=== PATIENT | male | born 1970 | race American Indian/Alaskan Native ===

== ENCOUNTER 2017-08-03 21:48 | Emergency (ER) | payer OTHER ==
[2017-08-03 21:59] VITALS: BP 110/69; PULSE 102; TEMP 99.6; BMI 35.4
--- NOTE | 2017-08-03 22:04 | PDOC ---
History of Present Illness - General Chief Complaint: Chest Pain Stated Complaint: CHEST PAIN Time Seen by Provider: 08/03/17 21:59 History Source: Patient Exam Limitations: No Limitations - History of Present Illness Initial Comments: 08/03/17 22:20 This is a 47-year-old male who comes in complaining of 4 days of progressive pleuritic type pain. Patient said pain is worse when he takes a deep breath and worse when he lays down. Patient said pain is constant but exacerbated by breathing. Patient denies history of similar pain in the past. Patient is otherwise healthy denies any cardiac risk factors and does not smoke drink alcohol or do any recreational drugs. Patient denies any recent travel or recent illnesses. Patient denies any pain or swelling in his legs. PAST MEDICAL HISTORY: no significant history PAST SURGICAL HISTORY: no significant history FAMILY HISTORY: no pertinant history SOCIAL HISTORY: Pt lives with family and is employed. MEDICATIONS: reviewed ALLERGIES: As per nursing notes Review of Systems General: No fevers or chills, no weakness, no weight loss HEENT: No change in vision. No sore throat,. No ear pain CardioVascular: No chest pain or shortness of breath Respiratory:No cough, or wheezing. Gastrointestinal: no nausea, vomitting, diarrhea or constipation, No rectal bleeding Genitourinary: No dysuria, hematuria, or frequency Musculoskeletal: No joint or muscle pain or swelling Neurologic: No headache, vertigo, dizziness or loss of consciousness Psychiatric: nor depression Skin: No rashes or easy bruising Endocrine: no increased thirst or abnormal weight change Allergic: no skin or latex allergy All other systems reviewed and normal Exam: General: Well-nourished well-developed individual, no acute distress HEENT: Throat: Normal, tonsils normal, no erythema or exudate Neck: Supple, no meningeal signs, no lymphadenopathy Eyes::Pupils equal reactive and round, extraocular motion intact Chest: Nontender to palpation Cardiac: S1-S2 normal, regular rate and rhythm, no murmurs rubs or gallops Respiratory: Lungs clear to auscultation bilateral Abdomen: Soft, nondistended, normal bowel sounds, nontender to palpation diffusely Extremities: Warm, dry, no cyanosis, clubbing, or edema Skin: No rashes Neuro: Alert and oriented x3, CN II - XII intact, nonfocal exam with normal strength, normal sensation, normal reflexes, normal gait, Psych: Normal mood and affect Medical decision making: This is a 47-year-old male with no risk factors for coronary disease who comes in with pleuritic chest pain. We'll obtain a basic workup including CBC, comp, cardiac enzymes, EKG and chest x-ray. I will give patient an anti-inflammatory, reassess and follow-up results of his workup. Differential diagnosis includes pleurisy, skeletal muscle pain, cardiac, infectious process, PE. anxiety.[] EKG shows normal sinus rhythm at a rate of 95, normal intervals, no acute ST-T wave changes, normal EKG Chest x-ray shows no acute pathology 08/03/17 23:26 Assessment: Patient feels better post anti-inflammatory. Patient's labs were negative for any acute processes. Patient's troponin was not measurable. Patient's heart score is 1. Patient discharged home told to continue some anti- inflammatories and follow-up with his primary care doctor. Past History - Past Medical History Allergies/Adverse Reactions: Allergies Allergy/AdvReac Type Severity Reaction Status Date / Time No Known Allergies Allergy Verified 07/13/14 09:16 Home Medications: Ambulatory Orders NK [No Known Home Medication] 08/03/17 Anemia: No Asthma: No Cancer: No Cardiac Disorders: No CVA: No COPD: No CHF: No Dementia: No Diabetes: Yes GI Disorders: No Disorders: No HTN: Yes Hypercholesterolemia: No Liver Disease: No Seizures: No Thyroid Disease: No - Surgical History Abdominal Surgery: No Appendectomy: No Cholecystectomy: No GI Surgery: Yes (BARIATRIC) Lung Surgery: No Orthopedic Surgery: No - Immunization History Immunization Up to Date: Yes - Suicide/Smoking/Psychosocial Hx Smoking History: Never smoked Hx Alcohol Use: Yes (OCC) Drug/Substance Use Hx: No Substance Use Type: None Hx Substance Use Treatment: No Cardiac Specific PMH - Complaint Specific PMHX Pacemaker: No *Physical Exam - Vital Signs Last Vital Signs Temp Pulse Resp BP Pulse Ox 99.6 F 102 H 16 110/69 98 08/03/17 21:53 08/03/17 21:53 08/03/17 21:53 08/03/17 21:53 08/03/17 21:53 Heart Score/ECG Review - History History: Slightly suspicious - Electrocardiogram EKG: Normal - Age Age: 45-65 - Risk Factors Based on the list above the patient has:: No risk factors known - Troponin Troponin: </= normal limit - Score Heart Score - Total: 1 ED Treatment Course - LABORATORY CBC & Chemistry Diagram: 08/03/17 22:57 08/03/17 22:57 - ADDITIONAL ORDERS Additional order review: Laboratory Results 08/03/17 08/03/17 08/03/17 22:57 22:57 22:57 Sodium 140 Potassium 3.6 Chloride 109 H Carbon Dioxide 25 Anion Gap 6 L BUN 16 Creatinine 1.0 Creat Clearance w eGFR > 60 Random Glucose 108 H Calcium 9.0 Total Bilirubin 0.7 AST 20 ALT 14 Alkaline Phosphatase 60 Creatine Kinase 184 Troponin I < 0.03 Total Protein 7.1 Albumin 3.7 08/03/17 22:57 RBC 4.30 MCV 90.5 MCHC 33.8 RDW 12.6 MPV 9.4 Neutrophils % 75.9 Lymphocytes % 14.4 Monocytes % 7.9 Eosinophils % 1.5 Basophils % 0.3 - RADIOLOGY Radiology Studies Ordered: Category Date Time Status CHEST X-RAY PORTABLE* [RAD] Stat Radiology 08/03/17 22:20 Taken - Medications Given in the ED: ED Medications Discontinued Medications Generic Name Dose Route Start Last Admin Trade Name Freq PRN Reason Stop Dose Admin Ibuprofen 600 mg 08/03/17 22:25 08/03/17 22:28 Motrin - PO 08/03/17 22:26 600 mg ONCE ONE Administration *DC/Admit/Observation/Transfer Diagnosis at time of Disposition: Pleuritic chest pain - Discharge Dispostion Disposition: HOME Condition at time of disposition: Stable Decision to Admit order: No - Referrals - Patient Instructions Additional Instructions: Take ibuprofen or Aleve for the next 5 days or until the pain resolves. Take it as directed on the bottle do not take it on an empty stomach. Follow-up with your doctor next Saturday if not improved. Return to the emergency department immediately with ANY new, persistent or worsening symptoms. Continue any medications as previously prescribed by your physician. You should follow up with your primary doctor as soon as possible regarding today's emergency department visit. . Please make sure your doctor reviews the results of your emergency evaluation. Thank you for coming to the Emergency Department today for your care. It was a pleasure to see you today. Please note that your evaluation is INCOMPLETE until you follow-up with your doctor. - Post Discharge Activity
[2017-08-03] MEDS ORDERED: IBUPROFEN 600 MG TABLET (FP) PO ONE ×2 (22:25)
[2017-08-03 23:04] LABS: BASO % 0.3 % (0-2.0); EOS % 1.5 % (0-4.5); HEMATOCRIT 38.9 % (35.4-49); HEMOGLOBIN 13.1 GM/dl (11.7-16.9); LYMPH % 14.4 % (8-40); MCH 30.6 pg (25.7-33.7); MCHC 33.8 g/dl (32.0-35.9); MEAN CELL VOLUME 90.5 fl (80-96); MEAN PLT VOLUME 9.4 fl (7.5-11.1); MONO % 7.9 % (3.8-10.2); NEUT % 75.9 % (42.8-82.8); PLATELET COUNT 170 K/MM3 (134-434); RDW 12.6 % (11.9-15.9)
[2017-08-03 23:11] LABS: ALBUMIN 3.7 g/dl (3.5-5.0); ALK PHOS 60 U/L (32-92); ANION GAP 6 (8-16); BILIRUBIN,TOTAL 0.7 mg/dl (0.2-1.0); BLOOD UREA NITROGEN 16 mg/dl (7-18); CHLORIDE 109 mmol/L (98-107); CO2 25 mmol/L (22-28); GLUCOSE,RANDOM 108 mg/dl (74-106); POTASSIUM 3.6 mmol/L (3.5-5.1); SGOT/AST 20 U/L (10-42); SGPT/ALT 14 U/L (10-40); SODIUM 140 mmol/L (136-145); TOT PROT 7.1 g/dl (6.4-8.3)
--- NOTE | 2017-08-08 13:31 | EKG ---
Test Reason : Blood Pressure : / mmHG Vent. Rate : 095 BPM Atrial Rate : 095 BPM P-R Int : 150 ms QRS Dur : 104 ms QT Int : 362 ms P-R-T Axes : 037 -18 022 degrees QTc Int : 454 ms POOR DATA QUALITY, INTERPRETATION MAY BE ADVERSELY AFFECTED NORMAL SINUS RHYTHM NORMAL ECG WHEN COMPARED WITH ECG OF 26-OCT-2009 09:39, INCOMPLETE RIGHT BUNDLE BRANCH BLOCK IS NO LONGER PRESENT Confirmed by JEAN-PAUL ARAGON, JUAN ([id number]) on 08/08/2017 1:31:05 PM Referred By: MD BOATENG Confirmed By:JUAN JEONG MD
== END 2017-08-03 23:33 | disposition home or self-care (01) ==
LOC: FER 21:48
DX: R07.89 Other chest pain (principal); Z98.84 Bariatric surgery status; I10 Essential (primary) hypertension; E11.9 Type 2 diabetes mellitus without complications
CPT/HCPCS: 36415; 71045-TC-FY; 80053; 82550; 82553; 84484; 85025; 93005; 99281-25

== ENCOUNTER 2019-04-27 15:00 | Inpatient (IN) | payer OTHER ==
[2019-04-27] MEDS ORDERED: FAMOTIDINE 20 MG/50 ML IVPB 20 MG in PREMIX 50 IVPB ONE (15:39)
[2019-04-27] MEDS ORDERED: MAG HYDROX/AL HYDROX/SIMETH -MYLANTA- ORAL SUSPENSION PO ONE (15:39)
[2019-04-27] MEDS ORDERED: SODIUM CHLORIDE 1,000 ML IV ONE (15:39)
[2019-04-27] MEDS ORDERED: FAMOTIDINE 20 MG/50 ML IVPB 20 MG/50 ML MG IVPB ONE (15:43)
[2019-04-27] MEDS ORDERED: MAG HYDROX/AL HYDROX/SIMETH 30 ML UNIT-DOSE CUP ONE (15:43)
[2019-04-27 16:05] LABS: EOS % 4.1 % (0-4.5); HEMATOCRIT 44.8 % (35.4-49); HEMOGLOBIN 14.9 GM/dl (11.7-16.9); LYMPH % 16.8 % (8-40); MCH 30.7 pg (25.7-33.7); MCHC 33.4 g/dl (32.0-35.9); MEAN CELL VOLUME 91.9 fl (80-96); MEAN PLT VOLUME 10.4 fl (7.5-11.1); NEUT % 73.1 % (42.8-82.8); PLATELET COUNT 176 K/MM3 (134-434); RBC 4.87 M/mm3 (4.00-5.60); RDW 14.1 % (11.9-15.9); WHITE BLOOD COUNT 5.6 K/mm3 (4.0-10.8)
[2019-04-27 16:15] LABS: ALBUMIN 3.9 g/dl (3.4-5.0); BILIRUBIN,TOTAL 3.5 mg/dl (0.2-1); CALCIUM 9.2 mg/dl (8.5-10); CREATININE 0.9 mg/dl (0.55-1.3); POTASSIUM 3.8 mmol/L (3.5-5.1); TOT PROT 7.6 g/dl (6.4-8.2)
--- NOTE | 2019-04-27 16:21 | PDOC ---
Documentation entered by Bucky Dennis SCRIBE, acting as scribe for Bobby Soria MD. Bobby Soria MD: This documentation has been prepared by the Jeannie emery Xhesika, SCRIBE, under my direction and personally reviewed by me in its entirety. I confirm that the documentation accurately reflects all work, treatment, procedures, and medical decision making performed by me. History of Present Illness - General Chief Complaint: Pain, Acute Stated Complaint: ABD PAIN History Source: Patient Exam Limitations: No Limitations - History of Present Illness Initial Comments: 04/27/19 15:39 The patient is a 49 year old male with a significant PMH of GERD who presents to the emergency department for epigastric pain after a meal x6 days. The patient describes his pain as 6/10 in severity, wrenching, constant, exacerbated with eating adn associated with mild nausea. Pt states he has been endorsing dark orange colored urine since the onset of his symptoms. Pt note he has been taking Aleve, with no improvement of symptoms. The patient denies chest pain, shortness of breath, diaphoresis,headache and dizziness. Denies fever, chills, cough, nausea, vomiting, diarrhea and constipation. Denies dysuria, frequency, urgency and hematuria. Allergies: NKDA surgical hx: sleeve gastrectomy Social hx: social etoh, no smoking (2nd hand smoke from ), no recreation al drug use Past History - Past Medical History Allergies/Adverse Reactions: Allergies Allergy/AdvReac Type Severity Reaction Status Date / Time No Known Allergies Allergy Verified 04/27/19 15:01 Home Medications: Ambulatory Orders NK [No Known Home Medication] 08/03/17 Anemia: No Asthma: No Cancer: No Cardiac Disorders: No CVA: No COPD: No CHF: No Dementia: No Diabetes: Yes GI Disorders: No Disorders: No HTN: Yes Hypercholesterolemia: No Liver Disease: No Seizures: No Thyroid Disease: No - Surgical History Abdominal Surgery: No Appendectomy: No Cholecystectomy: No GI Surgery: Yes (BARIATRIC) Lung Surgery: No Orthopedic Surgery: No - Immunization History Immunization Up to Date: Yes - Psycho Social/Smoking Cessation Hx Smoking History: Never smoked Hx Alcohol Use: Yes (OCC) Drug/Substance Use Hx: No Substance Use Type: None Hx Substance Use Treatment: No Review of Systems - Review of Systems Able to Perform ROS?: Yes Comments:: 04/27/19 15:39 GENERAL/CONSTITUTIONAL: No fever or chills. No weakness. HEAD, EYES, EARS, NOSE AND THROAT: No change in vision. No ear pain or discharge. No sore throat. CARDIOVASCULAR: No chest pain or shortness of breath. RESPIRATORY: No cough, wheezing, or hemoptysis. GASTROINTESTINAL: No nausea, vomiting, diarrhea or constipation. +epigastric/ RUQ pain. GENITOURINARY: No dysuria, frequency. +dark orange colored urine. MUSCULOSKELETAL: No joint or muscle swelling or pain. No neck or back pain. SKIN: No rash NEUROLOGIC: No headache, vertigo, loss of consciousness, or change in strength/ sensation. ENDOCRINE: No increased thirst. No abnormal weight change. HEMATOLOGIC/LYMPHATIC: No anemia, easy bleeding, or history of blood clots. ALLERGIC/IMMUNOLOGIC: No hives or skin allergy. *Physical Exam - Vital Signs Last Vital Signs Temp Pulse Resp BP Pulse Ox 98.4 F 82 16 117/74 100 04/27/19 15:01 04/27/19 15:01 04/27/19 15:01 04/27/19 15:01 04/27/19 15:01 - Physical Exam 04/27/19 16:17 GENERAL: The patient is awake, alert, and fully oriented, Nontoxic - in no acute distress. HEAD: Normocephalic, atraumatic. EYES: extraocular movements intact, sclera anicteric, conjunctiva clear. ENT: Normal voice, Moist mucous membranes. NECK: Normal range of motion, supple LUNGS: Breath sounds equal, clear to auscultation bilaterally. No wheezes, no rhonchi, no rales. HEART: Regular rate and rhythm, normal S1 and S2 without murmur, rub or gallop. ABDOMEN: Soft, mild RUQ tenderness, No guarding, no rebound. No CVA tenderness EXTREMITIES: Normal range of motion, no edema. NEUROLOGICAL: No facial assymetry, Normal speech, PSYCH: Normal mood, normal affect. SKIN: Warm, Dry, normal turgor, Heart Score/ECG Review - ECG Impressions Comment:: 04/27/19 19:25 Twelve-lead EKG was performed and reviewed by me. There is normal sinus rhythm with a normal rate. Rate of 71 incomplete right bundle branch block Nonspecific T wave abnormality qtc of 619 ED Treatment Course - LABORATORY CBC & Chemistry Diagram: 04/27/19 15:50 04/27/19 15:50 Medical Decision Making - Medical Decision Making 04/27/19 15:34 49y M presents with epigastric discomfort for the past 6 days after eating a meal - states the pain is worse with eating, is a wrenching type pain in the middle of his abdomen and constant. no improvement with alleve. pt endorses dark/orange colored urine. bm has been nromal without blood/diarrhea/melena. hx of sleeve gastrectomy ~4 years ago, has been having GERD - Differential for the patient's symptoms including possible gallbladder pathology /gallstones, Pancreatitis, Gastritis Will obtain blood work including lipase, liver enzymes, UA Give the patient Pepcid, Maalox Obtain an EKG to screen for cardiac disease however his symptoms are highly atypical 04/27/19 16:46 labs reviewed noted for elevated LFTs and bilirubin concern for obstructed stone - awaiting GB US 04/27/19 18:05 The patients US noted for gall stones and dilated cbd to 11mm concern for choledocholithiasis will admit for further management and will dw GI pt will likely need MRCP No signs of infection/cholecytsis 04/27/19 18:44 The Case was discussed with BAILEY Crockett - Will admit the patient for further evaluation of possible choledocholithiasis. Patient is currently feeling well without any discomfort Will admit to [facility] under the care of Dr. Her's team Case discussed in detail with admitting physician including history, physical exam and ancillary studies. Admitting physician has assumed care for the patient, will follow all pending diagnostics and will complete the evaluation and treatment. Discharge - Discharge Information Problems reviewed: Yes Clinical Impression/Diagnosis: Choledocholithiasis, Elevated liver enzymes Condition: Improved - Admission Yes - Follow up/Referral Referrals: Socorro Romero MD [Primary Care Provider] - - Patient Discharge Instructions - Post Discharge Activity
--- NOTE | 2019-04-27 18:14 | HP ---
CHIEF COMPLAINT: Abdominal pain PCP: Socorro Romero HISTORY OF PRESENT ILLNESS: 49 year-old male with a PMH significant for kidney stones, GERD, and s/p gastric sleeve x 4 years ([facility]). Presents to ED for evaluation of abdominal pain x 6 days. Patient reports the pain is in his middle upper abdomen. The pain waxes and wanes but never goes completely away. It is accompanied by mild nausea, no vomiting. The pain is worse after he eats. For the past 4 days his urine has become very dark. Patient thought he had a virus which is why he delayed coming to the ED. He denies fever, sweats, chills. Denies dysuria, frequency, urgency. Denies diarrhea, constipation. Denies blood in urine or stool. 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 Smoking: no Alcohol: social Drugs: no Family history: mother alive with DM; father alive with DM; 1 sister a&w; 2 children a&w Allergies No Known Allergies Allergy (Verified 04/27/19 15:01) HOME MEDICATIONS: Home Medications Medication Instructions Recorded NK [No Known Home Medication] 08/03/17 REVIEW OF SYSTEMS CONSTITUTIONAL: Absent: fever, chills, diaphoresis, generalized weakness, malaise, loss of appetite, weight change HEENT: Absent: rhinorrhea, nasal congestion, throat pain, throat swelling, difficulty swallowing, mouth swelling, ear pain, eye pain, visual changes CARDIOVASCULAR: Absent: chest pain, syncope, palpitations, irregular heart rate, lightheadedness , peripheral edema RESPIRATORY: Absent: cough, shortness of breath, dyspnea with exertion, orthopnea, wheezing, stridor, hemoptysis GASTROINTESTINAL: +abdominal pain, nausea Absent: abdominal distension, vomiting, diarrhea, constipation, melena, hematochezia GENITOURINARY: Absent: dysuria, frequency, urgency, hesitancy, hematuria, flank pain, genital pain MUSCULOSKELETAL: Absent: myalgia, arthralgia, joint swelling, back pain, neck pain SKIN: Absent: rash, itching, pallor HEMATOLOGIC/IMMUNOLOGIC: Absent: easy bleeding, easy bruising, lymphadenopathy, frequent infections ENDOCRINE: Absent: unexplained weight gain, unexplained weight loss, heat intolerance, cold intolerance NEUROLOGIC: Absent: headache, focal weakness or paresthesias, dizziness, unsteady gait, seizure, mental status changes, bladder or bowel incontinence PSYCHIATRIC: Absent: anxiety, depression, suicidal or homicidal ideation, hallucinations. PHYSICAL EXAMINATION Vital Signs - 24 hr 04/27/19 15:01 Temperature 98.4 F Pulse Rate 82 Respiratory 16 Rate Blood Pressure 117/74 O2 Sat by Pulse 100 Oximetry (%) GENERAL: Awake, alert, and fully oriented, in no acute distress. HEAD: Normal with no signs of trauma. EYES: Mildly icteric LUNGS: Breath sounds equal, clear to auscultation bilaterally. No wheezes, and no crackles. No accessory muscle use. HEART: Regular rate and rhythm, normal S1 and S2 ABDOMEN: Soft, obese, tender middle upper abdomen on deep palpation MUSCULOSKELETAL: Normal range of motion at all joints. No bony deformities or tenderness. No CVA tenderness. UPPER EXTREMITIES: 2+ pulses, warm, well-perfused. No cyanosis. No clubbing. No peripheral edema. LOWER EXTREMITIES: 2+ pulses, warm, well-perfused. No calf tenderness. No peripheral edema. NEUROLOGICAL: Cranial nerves II-XII intact. Normal speech. Self positions easily Laboratory Results - last 24 hr 04/27/19 04/27/19 04/27/19 15:50 15:50 15:50 WBC 5.6 RBC 4.87 Hgb 14.9 Hct 44.8 D MCV 91.9 MCH 30.7 MCHC 33.4 RDW 14.1 D Plt Count 176 MPV 10.4 D Absolute Neuts (auto) 4.1 Neutrophils % 73.1 Lymphocytes % 16.8 Monocytes % 5.0 Eosinophils % 4.1 D Basophils % 1.0 D Sodium 136 Potassium 3.8 Chloride 101 Carbon Dioxide 26 Anion Gap 9 BUN 10.0 Creatinine 0.9 Est GFR (CKD-EPI)AfAm 115.02 Est GFR (CKD-EPI)NonAf 99.24 Random Glucose 143 H Calcium 9.2 Total Bilirubin 3.5 H AST 321 H ALT 512 H Alkaline Phosphatase 219 H Total Protein 7.6 Albumin 3.9 Lipase 106 Urine Color Urine Appearance Urine pH Urine Protein Urine Glucose (UA) Urine Ketones Urine Blood Urine Nitrite Urine Bilirubin Urine Urobilinogen Ur Leukocyte Esterase Urine RBC Urine WBC Urine Bacteria 04/27/19 16:10 WBC RBC Hgb Hct MCV MCH MCHC RDW Plt Count MPV Absolute Neuts (auto) Neutrophils % Lymphocytes % Monocytes % Eosinophils % Basophils % Sodium Potassium Chloride Carbon Dioxide Anion Gap BUN Creatinine Est GFR (CKD-EPI)AfAm Est GFR (CKD-EPI)NonAf Random Glucose Calcium Total Bilirubin AST ALT Alkaline Phosphatase Total Protein Albumin Lipase Urine Color Dark Urine Appearance Cloudy Urine pH 5.5 Urine Protein Negative Urine Glucose (UA) Negative Urine Ketones Trace Urine Blood Trace-intact Urine Nitrite Negative Urine Bilirubin 3+ H Urine Urobilinogen 2.0 Ur Leukocyte Esterase Negative Urine RBC 2-5 Urine WBC 0-2 Urine Bacteria Few ASSESSMENT/PLAN: 49 year-old male with a PMH significant for kidney stones, GERD, and s/p gastric sleeve x 4 years ([facility]). Presents to ED for evaluation of abdominal pain x 6 days. Abdominal pain Cholelithiasis Dilated common bile duct Elevated liver function --afebrile, no leukocytosis --CTAP shows multiple small gallstones, +business analytics manager's Root's sign, and dilated CBD 11mm --total bili 3.5, elevated transaminases, jaundiced sclera --discussed with radiology Dr. Torres, needs MRCP --no GI coverage tonight at [place]; transfer patient to [facility] for further GI evaluation --start empiric ceftriaxone and metronidazole s/p Gastric sleeve surgery --last saw surgeon ~ 6 months ago, no reported complications Renal colic --four previous episodes, lithotripsy 2006 GERD --protonix FEN Fluids: NS@125mL/hr Electrolytes: replete as indicated Nutrition: NPO DVT prophylaxis: SCDs, oob, ambulation Dispo: continues to require inpatient care. Full code. Visit type - Emergency Visit Emergency Visit: Yes Care time: The patient presented to the Emergency Department on the above date and was hospitalized for further evaluation of their emergent condition. - New Patient This patient is new to me today: Yes Date on this admission: 04/27/19 - Critical Care Critical Care patient: No
[2019-04-27] MEDS ORDERED: ACETAMINOPHEN 1000 MG/100 ML VIAL (NON FORMULARY) IVPB SCH (18:45)
[2019-04-27] MEDS: SODIUM CHLORIDE 1,000 ML IV SCH ×2 (19:21→22:46)
[2019-04-27] MEDS ORDERED: CEFTRIAXONE 2 GM in DEXTROSE 5%-WATER 100 ML IVPB SCH (22:30)
[2019-04-27] MEDS ORDERED: IBUPROFEN 800 MG/8 ML IJ IVPB ONE (22:35)
[2019-04-27] MEDS ORDERED: DEXTROSE 5%-WATER 100 ML IVPB ONE (22:42)
[2019-04-27 22:52] LABS: BASO % 0.8 % (0-2.0); HEMATOCRIT 40.4 % (35.4-49); HEMOGLOBIN 13.6 GM/dL (11.7-16.9); LYMPH % 24.2 % (8-40); MCH 30.6 pg (25.7-33.7); MCHC 33.5 g/dl (32.0-35.9); MEAN CELL VOLUME 91.4 fl (80-96); MEAN PLT VOLUME 9.4 fl (7.5-11.1); PLATELET COUNT 139 K/MM3 (134-434); RBC 4.42 M/mm3 (4.00-5.60); RDW 14.6 % (11.9-15.9); WHITE BLOOD COUNT 4.9 K/mm3 (4.0-10.0)
[2019-04-27 23:20] LABS: BLOOD UREA NITROGEN 8.6 mg/dL (7-18); CALCIUM 8.5 mg/dL (8.5-10.1); CREATININE 0.9 mg/dL (0.55-1.3); POTASSIUM 3.6 mmol/L (3.5-5.1)
[2019-04-27 23:27] LABS: ALBUMIN 3.3 g/dl (3.4-5.0); BILIRUBIN,DIRECT 2.3 mg/dL (0.0-0.2); BILIRUBIN,TOTAL 2.7 mg/dL (0.2-1); MAGNESIUM 1.8 mg/dL (1.8-2.4); TOT PROT 6.8 g/dl (6.4-8.2)
[2019-04-27 23:47] VITALS: BMI 36.8
--- NOTE | 2019-04-28 09:22 | EKG ---
Test Reason : Blood Pressure : / mmHG Vent. Rate : 071 BPM Atrial Rate : 071 BPM P-R Int : 160 ms QRS Dur : 118 ms QT Int : 570 ms P-R-T Axes : 034 -28 -04 degrees QTc Int : 619 ms NORMAL SINUS RHYTHM INCOMPLETE RIGHT BUNDLE BRANCH BLOCK ABNORMAL ECG Confirmed by Michele Ye MD ([id number]) on 04/28/2019 9:22:21 AM Referred By: Confirmed By:Michele Ye MD
[2019-04-28] MEDS ORDERED: DEXTROSE 5%-WATER 100 ML IVPB ONE (09:38)
[2019-04-28 09:43] LABS: ALBUMIN 3.3 g/dl (3.4-5.0); BILIRUBIN,DIRECT 0.5 mg/dL (0.0-0.2); BILIRUBIN,TOTAL 0.8 mg/dL (0.2-1); TOT PROT 6.8 g/dl (6.4-8.2)
[2019-04-28] MEDS: SODIUM CHLORIDE 1,000 ML IV SCH (09:46)
[2019-04-28] MEDS: CEFTRIAXONE 2 GM in DEXTROSE 5%-WATER 100 ML IVPB SCH (09:46)
[2019-04-28 09:49] LABS: EOS % 4.6 % (0-4.5); HEMATOCRIT 40.3 % (35.4-49); HEMOGLOBIN 13.4 GM/dL (11.7-16.9); LYMPH % 20.5 % (8-40); MCH 30.6 pg (25.7-33.7); MCHC 33.3 g/dl (32.0-35.9); MEAN PLT VOLUME 9.6 fl (7.5-11.1); MONO % 6.9 % (3.8-10.2); PLATELET COUNT 135 K/MM3 (134-434); RBC 4.38 M/mm3 (4.00-5.60); RDW 15.1 % (11.9-15.9); WHITE BLOOD COUNT 4.2 K/mm3 (4.0-10.0)
[2019-04-28] MEDS ORDERED: PANTOPRAZOLE SODIUM 40 MG VIAL IVPUSH SCH (10:00)
[2019-04-28 10:34] LABS: ACTIVATED PTT 29.8 SECONDS (25.2-36.5); INR 1.05 (0.83-1.09); PROTHROMBIN TIME (PATIENT) 12.4 SEC (9.7-13.0)
[2019-04-28] MEDS ORDERED: ACETAMINOPHEN 1000 MG/100 ML VIAL (NON FORMULARY) IVPB ONE (11:38)
--- NOTE | 2019-04-28 11:39 | PN ---
Physical Exam: SUBJECTIVE: Patient seen and examined Patient seen and examined at the bedside. c/o of headache. no nausea or vomiting. denies any abdominal pain. OBJECTIVE: Patient is a 49 year-old male with a past medical history significant for kidney stones, GERD, and s/p gastric sleeve x 4 years ago. Presents to ED on for evaluation of abdominal pain x 6 days. Patient reports the pain is in his middle upper abdomen. The pain waxes and wanes but never goes completely away. It is accompanied by mild nausea, no vomiting. The pain is worse after he eats. For the past 4 days his urine has become very dark. He denies fever, sweats, chills. Denies dysuria, frequency, urgency. Vital Signs Period Temp Pulse Resp BP Sys/Ferrari Pulse Ox Last 24 Hr 97.4 F-98.7 F 62-82 16-20 100-129/57-81 99-100 GENERAL: The patient is awake, alert, and fully oriented, in no acute distress. HEAD: Normal with no signs of trauma. EYES: PERRL, extraocular movements intact, sclera anicteric, conjunctiva clear. No ptosis. ENT: Ears normal, nares patent, oropharynx clear without exudates, moist mucous membranes. NECK: Trachea midline, full range of motion, supple. LUNGS: Breath sounds equal, clear to auscultation bilaterally, no wheezes, no crackles, no accessory muscle use. HEART: Regular rate and rhythm, ABDOMEN: Soft, nontender, nondistended, normoactive bowel sounds EXTREMITIES: no edema. NEUROLOGICAL: Normal speech, gait not observed. PSYCH: Normal mood, normal affect. SKIN: Warm, dry, normal turgor, no rashes or lesions noted Laboratory Results - last 24 hr 04/27/19 04/27/19 04/27/19 15:50 15:50 15:50 WBC 5.6 RBC 4.87 Hgb 14.9 Hct 44.8 D MCV 91.9 MCH 30.7 MCHC 33.4 RDW 14.1 D Plt Count 176 MPV 10.4 D Absolute Neuts (auto) 4.1 Neutrophils % 73.1 Lymphocytes % 16.8 Monocytes % 5.0 Eosinophils % 4.1 D Basophils % 1.0 D Nucleated RBC % PT with INR INR PTT (Actin FS) Sodium 136 Potassium 3.8 Chloride 101 Carbon Dioxide 26 Anion Gap 9 BUN 10.0 Creatinine 0.9 Est GFR (CKD-EPI)AfAm 115.02 Est GFR (CKD-EPI)NonAf 99.24 Random Glucose 143 H Calcium 9.2 Magnesium Total Bilirubin 3.5 H Direct Bilirubin 2.0 H AST 321 H ALT 512 H Alkaline Phosphatase 219 H Total Protein 7.6 Albumin 3.9 Lipase 106 Urine Color Urine Appearance Urine pH Urine Protein Urine Glucose (UA) Urine Ketones Urine Blood Urine Nitrite Urine Bilirubin Urine Urobilinogen Ur Leukocyte Esterase Urine RBC Urine WBC Urine Bacteria Blood Type Antibody Screen 04/27/19 04/27/19 04/27/19 16:10 22:30 22:30 WBC 4.9 RBC 4.42 Hgb 13.6 Hct 40.4 MCV 91.4 MCH 30.6 MCHC 33.5 RDW 14.6 Plt Count 139 MPV 9.4 Absolute Neuts (auto) 3.1 Neutrophils % 63.0 Lymphocytes % 24.2 Monocytes % 7.0 Eosinophils % 5.0 H Basophils % 0.8 Nucleated RBC % 0 PT with INR INR PTT (Actin FS) Sodium 140 Potassium 3.6 Chloride 109 H Carbon Dioxide 25 Anion Gap 6 L BUN 8.6 Creatinine 0.9 Est GFR (CKD-EPI)AfAm 115.02 Est GFR (CKD-EPI)NonAf 99.24 Random Glucose 128 H Calcium 8.5 Magnesium 2.0 Total Bilirubin Direct Bilirubin AST ALT Alkaline Phosphatase Total Protein Albumin Lipase Urine Color Dark Urine Appearance Cloudy Urine pH 5.5 Urine Protein Negative Urine Glucose (UA) Negative Urine Ketones Trace Urine Blood Trace-intact Urine Nitrite Negative Urine Bilirubin 3+ H Urine Urobilinogen 2.0 Ur Leukocyte Esterase Negative Urine RBC 2-5 Urine WBC 0-2 Urine Bacteria Few Blood Type Antibody Screen 04/27/19 04/28/19 04/28/19 22:30 06:00 07:48 WBC 4.2 RBC 4.38 Hgb 13.4 Hct 40.3 MCV 92.0 MCH 30.6 MCHC 33.3 RDW 15.1 Plt Count 135 MPV 9.6 Absolute Neuts (auto) 2.8 Neutrophils % 67.0 Lymphocytes % 20.5 Monocytes % 6.9 Eosinophils % 4.6 H Basophils % 1.0 Nucleated RBC % 0 PT with INR INR PTT (Actin FS) Sodium Potassium Chloride Carbon Dioxide Anion Gap BUN Creatinine Est GFR (CKD-EPI)AfAm Est GFR (CKD-EPI)NonAf Random Glucose Calcium Magnesium 1.8 Total Bilirubin 2.7 H 0.8 Direct Bilirubin 2.3 H 0.5 H AST 306 H 213 H ALT 517 H 441 H Alkaline Phosphatase 249 H 249 H Total Protein 6.8 6.8 Albumin 3.3 L 3.3 L Lipase Urine Color Urine Appearance Urine pH Urine Protein Urine Glucose (UA) Urine Ketones Urine Blood Urine Nitrite Urine Bilirubin Urine Urobilinogen Ur Leukocyte Esterase Urine RBC Urine WBC Urine Bacteria Blood Type Antibody Screen 04/28/19 04/28/19 07:48 07:48 WBC RBC Hgb Hct MCV MCH MCHC RDW Plt Count MPV Absolute Neuts (auto) Neutrophils % Lymphocytes % Monocytes % Eosinophils % Basophils % Nucleated RBC % PT with INR 12.40 INR 1.05 PTT (Actin FS) 29.8 Sodium Potassium Chloride Carbon Dioxide Anion Gap BUN Creatinine Est GFR (CKD-EPI)AfAm Est GFR (CKD-EPI)NonAf Random Glucose Calcium Magnesium Total Bilirubin Direct Bilirubin AST ALT Alkaline Phosphatase Total Protein Albumin Lipase Urine Color Urine Appearance Urine pH Urine Protein Urine Glucose (UA) Urine Ketones Urine Blood Urine Nitrite Urine Bilirubin Urine Urobilinogen Ur Leukocyte Esterase Urine RBC Urine WBC Urine Bacteria Blood Type A POSITIVE Antibody Screen Negative Active Medications Generic Name Dose Route Start Last Admin Trade Name Ariana PRN Reason Stop Dose Admin Acetaminophen 1,000 mg 04/28/19 11:38 Ofirmev Injection - IVPB 04/28/19 11:39 ONCE ONE Sodium Chloride 1,000 mls @ 125 mls/hr 04/27/19 18:45 04/28/19 09:46 Normal Saline - IV 125 mls/hr ASDIR MURRAY Administration Ceftriaxone Sodium 2 gm/ 100 mls @ 200 mls/hr 04/28/19 10:00 04/28/19 09:46 Dextrose IVPB 200 mls/hr DAILY MURRAY Administration Protocol Metronidazole 500 mg in 100 mls @ 100 mls/hr 04/28/19 10:00 04/28/19 09:45 Flagyl 500mg Premixed Ivpb - IVPB 100 mls/hr Q8H-IV MURRAY Administration Pantoprazole Sodium 40 mg 04/28/19 10:00 04/28/19 09:45 Protonix Iv IVPUSH 40 mg DAILY MURRAY Administration ASSESSMENT/PLAN: Problem List - Problems (1) Abdominal pain Assessment/Plan: patient presents with abdominal pain, mild nausea and no vomiting CTAP shows multple small gallstones with positive murphys sign with dilated CBD Total bili initially 3.5, now trending down Has elevated liver enzymes patient for a MRCP on Ceftriaxone/Flagyl NPO for abdominal pain, advance diet when cleared by GI Code(s): R10.9 - UNSPECIFIED ABDOMINAL PAIN (2) Choledocholithiasis Code(s): K80.50 - CALCULUS OF BILE DUCT W/O CHOLANGITIS OR CHOLECYST W/O OBST (3) Elevated liver enzymes Assessment/Plan: Elevated liver function hepatitis panel ordered Code(s): R74.8 - ABNORMAL LEVELS OF OTHER SERUM ENZYMES (4) Multiple gallstones Assessment/Plan: GI and surgery following Code(s): K80.20 - CALCULUS OF GALLBLADDER W/O CHOLECYSTITIS W/O OBSTRUCTION (5) Left flank pain Code(s): R10.9 - UNSPECIFIED ABDOMINAL PAIN (6) Prophylactic measure Assessment/Plan: fen tolerating po monitor electrolytes advance diet per GI full code Code(s): Z29.9 - ENCOUNTER FOR PROPHYLACTIC MEASURES, UNSPECIFIED Visit type - Emergency Visit Emergency Visit: Yes ED Registration Date: 04/27/19 Care time: The patient presented to the Emergency Department on the above date and was hospitalized for further evaluation of their emergent condition. - New Patient This patient is new to me today: Yes Date on this admission: 04/28/19 - Critical Care Critical Care patient: No - Discharge Referral Referred to [facility] Med P.C.: No
[2019-04-28 11:41] LABS: BLOOD UREA NITROGEN 7.8 mg/dL (7-18); CALCIUM 8.5 mg/dL (8.5-10.1); CREATININE 0.9 mg/dL (0.55-1.3)
--- NOTE | 2019-04-28 11:46 | PN ---
Progress Note (short form) - Note Progress Note: GI CONSULT DICTATED MRCP NPO IVF ABX SURGERY EVAL
--- NOTE | 2019-04-28 12:24 | CONS ---
GASTROINTESTINAL CONSULTATION DATE OF CONSULTATION: DATE OF DICTATION: 04/28/2019 HISTORY: Patient is a 49-year-old man with a past medical history significant for renal calculi, reflux disease, gastric sleeve 4 years ago who presents to the hospital with a 6-day history of mid and right upper quadrant abdominal pain with associated nausea. He became concerned on Saturday when he noticed his urine turning darker in color prompting him to go to [facility]. While there, he was noted to have abnormal liver tests and questionable cholecystitis. Therefore, he was transferred to [facility] for further management. He currently denies abdominal pain. States he is feeling better on the current medications. He denies any new medications, antibiotics, travel, or history of liver disease. He does not drink any alcohol. PAST MEDICAL HISTORY: As listed in the HPI. PAST SURGICAL HISTORY: As listed in the HPI with the addition of a lithotripsy. SOCIAL HISTORY: Lives with his . Works as a delivery supervisor. Does not smoke, drink, or use drugs. FAMILY HISTORY: There is no history of GI or gynecological malignancy and no history of liver disease. PHYSICAL EXAMINATION: General: In no acute distress. Vital Signs: Temperature 97, pulse 62, blood pressure 106/57, respiratory rate 18. HEENT: Anicteric sclerae. Cardiovascular: S1, S2. Regular rate and rhythm. Lungs: Bilaterally clear to auscultation. Abdomen: Tender in the right upper quadrant epigastrium without rebound or guarding. Bowel sounds are normal. Extremities: No edema. LABORATORIES: White blood cell count 4.2, hemoglobin 13, hematocrit 40, MCV 92, platelet count 135. INR 1. Sodium 139, potassium 4, BUN 7.8, creatinine 0.9, glucose 82. Total bilirubin on transfer was 3.5, direct 2, currently it is 0.8. Liver tests on the ; AST 321, ALT 510, alkaline phosphatase 219. These numbers today are AST 213, ALT 441, alkaline phosphatase 249. Lipase 106. He had a gallbladder ultrasound, which revealed hepatomegaly, multiple small gallstones without sonographic evidence of acute cholecystitis; however, there was a positive Root sign that was reported. Dilated CBD measuring 11 mm. MRCP was recommended. Nonobstructing renal stone. IMPRESSION: Right upper quadrant abdominal pain, epigastric abdominal pain with associated nausea and abnormal liver tests, which the alanine aminotransferase is much greater than aspartate aminotransferase and a dilated common bile duct on ultrasound. These findings are most consistent with a potential choledocholithiasis or a passed stone also with questionable sonographic Root sign on ultrasound. RECOMMENDATION: Surgery evaluation. Antibiotics should be continued. Currently on ceftriaxone and metronidazole. PPI for symptomatic relief. MRCP has been ordered. Will contact Dr. Tobar for potential ERCP. N.p.o. IV fluids. DO RASHIDA CROWE/[id number]
[2019-04-28 15:10] LABS: PH,URINE 5.5 (5.0-8.0); URINE APPEARANCE CLEAR; URINE BILIRUBIN NEGATIVE (NEGATIVE); URINE COLOR YELLOW; URINE GLUCOSE (UA) NEGATIVE (NEGATIVE); URINE KETONE NEGATIVE (NEGATIVE); URINE LEUK ESTERASE NEGATIVE (NEGATIVE); URINE NITRITE NEGATIVE (NEGATIVE); URINE PROTEIN NEGATIVE (NEGATIVE); URINE UROBILINOGEN 0.2 mg/dL (0.2-1.0)
--- NOTE | 2019-04-28 15:19 | PN ---
Progress Note (short form) - Note Progress Note: GI NOte: Asked by Dr Sunshine to evaluate Chito for a possible ERCP. I have discussed ERCP in detail including informing him of the potential for such complications as as perforation, hemorrhage and multiorgan failure that can develop with ERCP induced pancreatitis. He has signed an informed consent. MRCP is pending. Await results and repeat LFTs to determine whether or not to proceed with ERCP. Will allow clear liquids tonight but keep NPO after midnight.
--- NOTE | 2019-04-28 15:31 | CONSULT ---
- Consultation REQUESTING PROVIDER: General Surgery - Rick Lopez CONSULT REQUEST: We have been asked to surgically evaluate this patient for RUQ abd pain. Hospitalist FILTER [employer]ER: Bonilla Davis HPI: Called to sabra 49 yo male with PMHx as noted below. Presents to [facility] ED w/ c/o abd pain (points to epigastric region) for the past 6 days. Pain waxes & wanes but never completely goes away. First noticed it soon after eating a meal (typically high in fats). Associated with some nausea but denies vomiting. Also happen to notice a change in his urine color (tea appearance per patient). Denies any sick contacts. Denies any abd trauma. Denies any fever/chills, diaphoresis. Denies CP, palpitations, SOB or REYNOLDS. Denies dysuria, hematuria or flank pain. Denies melena or hematochezia. ABD Ultrasound: hepatomegaly w/ fatty infiltration. Multiple gallstones without sonographic evidence of acute bj. + Sonographic Root's. CBD 11mm PMHx: kidney stones, GERD, Duodenitis/Gastritis PSHx: Laprascopic Gastric Sleeve Gastrectomy([facility]) EGD 2015 ([facility]) Lithotripsy x 1 2006 Home Meds: None. Allergies: NKDA ROS: CONSTITUTIONAL: Absent: generalized weakness, malaise, loss of appetite, weight change CARDIOVASCULAR: Absent: syncope, irregular heart rate, lightheadedness, peripheral edema RESPIRATORY: Absent: cough, wheezing, stridor, hemoptysis GASTROINTESTINAL:see hpi GENITOURINARY: Absent: see hpi MUSCULOSKELETAL: Absent: myalgia, arthralgia, joint swelling, back pain, neck pain SKIN: Absent: rash, itching, pallor HEMATOLOGIC/IMMUNOLOGIC: Absent: easy bleeding, easy bruising, lymphadenopathy NEUROLOGIC: Absent: paresthesias, dizziness, unsteady gait, seizure, mental status changes PSYCHIATRIC: Absent: anxiety, depression, suicidal or homicidal ideation, hallucinations. PE: GENERAL: A&Ox3. NAD HEAD: Normal with no signs of trauma. EYES: PERRL, sclera anicteric, conjunctiva clear. NECK: Normal ROM, supple without lymphadenopathy, JVD, or masses. LUNGS: CTA bilat HEART: RRR ABD: Soft, RUQ ttp, + Root's MUSCULOSKELETAL: No CVAT bilat UE: 2+ pulses, warm, well-perfused. No cyanosis. Cap refill <2 seconds. No peripheral edema. LE: 2+ pulses, warm, well-perfused. No calf tenderness. No peripheral edema. NEUROLOGICAL: Normal speech, gait not observed. PSYCH: Cooperative. Good eye contact. Appropriate mood and affect. SKIN: Warm, dry, normal turgor, no rashes or lesions noted. Last Vital Signs Temp Pulse Resp BP Pulse Ox 98.3 F 63 18 108/64 99 04/28/19 14:13 04/28/19 14:13 04/28/19 14:13 04/28/19 14:13 04/27/19 22:10 Blood Type Blood Type A POSITIVE 04/28/19 07:48 CBC, BMP 04/28/19 07:48 04/28/19 06:00 Hepatic Panel Total Bilirubin 0.8 mg/dL (0.2-1) 04/28/19 06:00 Direct Bilirubin 0.5 mg/dL (0.0-0.2) H 04/28/19 06:00 AST 213 U/L (15-37) H 04/28/19 06:00 ALT 441 U/L (13-61) H 04/28/19 06:00 Alkaline Phosphatase 249 U/L (45-117) H 04/28/19 06:00 Albumin 3.3 g/dl (3.4-5.0) L 04/28/19 06:00 INR, PTT INR 1.05 (0.83-1.09) 04/28/19 07:48 Urine Test Results Urine Color Yellow 04/28/19 12:00 Urine Appearance Clear 04/28/19 12:00 Urine pH 5.5 (5.0-8.0) 04/28/19 12:00 Ur Specific [place] 1.016 (1.010-1.035) 04/28/19 12:00 Urine Protein Negative (NEGATIVE) 04/28/19 12:00 Urine Glucose (UA) Negative (NEGATIVE) 04/28/19 12:00 Urine Ketones Negative (NEGATIVE) 04/28/19 12:00 Urine Blood Negative (NEGATIVE) 04/28/19 12:00 Urine Nitrite Negative (NEGATIVE) 04/28/19 12:00 Urine Bilirubin Negative (NEGATIVE) 04/28/19 12:00 Ur Leukocyte Esterase Negative (NEGATIVE) 04/28/19 12:00 Urine RBC 2-5 /hpf (0-4) 04/27/19 16:10 Urine WBC 0-2 (NEGATIVE) 04/27/19 16:10 Urine Bacteria Few /hpf (NEGATIVE) 04/27/19 16:10 Problem List - Problems (1) Multiple gallstones Assessment/Plan: 49 year old male admitted w/ RUQ abd pain and elevated LFTs. GI following f/u MRCP, possible ERCP pending results NPO IVF GI PPx DVT PPx Trend LFTs Amylase/Lipase Surgery to cont following Above plan discussed with Dr. Lopez and agrees. Code(s): K80.20 - CALCULUS OF GALLBLADDER W/O CHOLECYSTITIS W/O OBSTRUCTION (2) Elevated liver enzymes Code(s): R74.8 - ABNORMAL LEVELS OF OTHER SERUM ENZYMES Visit type - Case Type Case Type: Scheduled - New patient This patient is new to me today: Yes Date on this admission: 04/28/19
[2019-04-29] MEDS: SODIUM CHLORIDE 1,000 ML IV SCH ×2 (02:08→21:48)
[2019-04-29 09:17] LABS: BASO % 0.7 % (0-2.0); EOS % 2.8 % (0-4.5); HEMATOCRIT 42.4 % (35.4-49); HEMOGLOBIN 14.4 GM/dL (11.7-16.9); LYMPH % 18.1 % (8-40); MEAN PLT VOLUME 9.4 fl (7.5-11.1); MONO % 6.3 % (3.8-10.2); NEUT % 72.1 % (42.8-82.8); PLATELET COUNT 147 K/MM3 (134-434); RBC 4.66 M/mm3 (4.00-5.60); RDW 14.5 % (11.9-15.9)
[2019-04-29] MEDS ORDERED: DEXTROSE 5%-WATER 100 ML IVPB ONE ×2 (09:24→10:09)
[2019-04-29] MEDS ORDERED: LORazepam 2 MG/ML SDV VIAL IVPUSH ONE (09:30)
[2019-04-29 09:31] LABS: INR 1.04 (0.83-1.09); PROTHROMBIN TIME (PATIENT) 12.3 SEC (9.7-13.0)
[2019-04-29 09:59] LABS: ALBUMIN 3.6 g/dl (3.4-5.0); BILIRUBIN,DIRECT 0.4 mg/dL (0.0-0.2); BILIRUBIN,TOTAL 0.7 mg/dL (0.2-1); BLOOD UREA NITROGEN 8.7 mg/dL (7-18); CALCIUM 9.1 mg/dL (8.5-10.1); TOT PROT 7.5 g/dl (6.4-8.2)
[2019-04-29] MEDS: PANTOPRAZOLE SODIUM 40 MG VIAL IVPUSH SCH (10:31)
--- NOTE | 2019-04-29 10:46 | PN ---
Progress Note (short form) - Note Progress Note: GI NOte> MRCP still pending but LFTs continue to normalize. Toy defer ERCP until MRCP is completed.
[2019-04-29] MEDS: CEFTRIAXONE 2 GM in DEXTROSE 5%-WATER 100 ML IVPB SCH (11:21)
--- NOTE | 2019-04-29 11:41 | PN ---
Physical Exam: SUBJECTIVE: Patient seen and examined at the bedside. OBJECTIVE: Patient is a 49 year-old male with a past medical history significant for kidney stones, GERD, and s/p gastric sleeve x 4 years ago. Presents to ED on for evaluation of abdominal pain x 6 days. Patient reports the pain is in his middle upper abdomen. The pain waxes and wanes but never goes completely away. It is accompanied by mild nausea, no vomiting. The pain is worse after he eats. For the past 4 days his urine has become very dark. He denies fever, sweats, chills. Denies dysuria, frequency, urgency. Vital Signs Period Temp Pulse Resp BP Sys/Ferrari Pulse Ox Last 24 Hr 97.5 F-98.7 F 63-70 18-20 107-120/64-84 97-99 GENERAL: The patient is awake, alert, and fully oriented, in no acute distress. HEAD: Normal with no signs of trauma. EYES: PERRL, extraocular movements intact, sclera anicteric, conjunctiva clear. No ptosis. ENT: Ears normal, nares patent, oropharynx clear without exudates, moist mucous membranes. NECK: Trachea midline, full range of motion, supple. LUNGS: Breath sounds equal, clear to auscultation bilaterally, no wheezes, no crackles, no accessory muscle use. HEART: Regular rate and rhythm, ABDOMEN: Soft, nontender, nondistended, normoactive bowel sounds EXTREMITIES: no edema. NEUROLOGICAL: Normal speech, gait not observed. PSYCH: Normal mood, normal affect. SKIN: Warm, dry, normal turgor, no rashes or lesions noted Laboratory Results - last 24 hr 04/28/19 04/28/19 04/29/19 06:00 12:00 08:34 WBC RBC Hgb Hct MCV MCH MCHC RDW Plt Count MPV Absolute Neuts (auto) Neutrophils % Lymphocytes % Monocytes % Eosinophils % Basophils % Nucleated RBC % PT with INR INR Sodium 139 136 Potassium 4.0 4.0 Chloride 106 102 Carbon Dioxide 26 27 Anion Gap 7 L 7 L BUN 7.8 8.7 Creatinine 0.9 1.0 Est GFR (CKD-EPI)AfAm 115.02 101.26 Est GFR (CKD-EPI)NonAf 99.24 87.37 Random Glucose 82 80 Calcium 8.5 9.1 Magnesium 2.0 Iron 100 TIBC 339 Iron Saturation 29 Unsaturated IBC 239 Ferritin 446.8 H Total Bilirubin 0.8 0.7 Direct Bilirubin 0.5 H 0.4 H AST 213 H 129 H ALT 441 H 367 H Alkaline Phosphatase 249 H 240 H Creatine Kinase 204 Creatine Kinase Index 0.5 CK-MB (CK-2) 1.1 C-Reactive Protein 0.6 H Total Protein 6.8 7.5 Albumin 3.3 L 3.6 Total Amylase 34 Lipase 105 Urine Color Yellow Urine Appearance Clear Urine pH 5.5 Ur Specific [place] 1.016 Urine Protein Negative Urine Glucose (UA) Negative Urine Ketones Negative Urine Blood Negative Urine Nitrite Negative Urine Bilirubin Negative Urine Urobilinogen 0.2 Ur Leukocyte Esterase Negative 04/29/19 04/29/19 04/29/19 08:34 08:34 08:34 WBC 5.0 RBC 4.66 Hgb 14.4 Hct 42.4 MCV 91.0 MCH 31.0 MCHC 34.0 RDW 14.5 Plt Count 147 MPV 9.4 Absolute Neuts (auto) 3.6 Neutrophils % 72.1 Lymphocytes % 18.1 Monocytes % 6.3 Eosinophils % 2.8 Basophils % 0.7 Nucleated RBC % 0 PT with INR 12.30 INR 1.04 Sodium Potassium Chloride Carbon Dioxide Anion Gap BUN Creatinine Est GFR (CKD-EPI)AfAm Est GFR (CKD-EPI)NonAf Random Glucose Calcium Magnesium Iron Cancelled TIBC Cancelled Iron Saturation Cancelled Unsaturated IBC Cancelled Ferritin Cancelled Total Bilirubin Direct Bilirubin AST ALT Alkaline Phosphatase Creatine Kinase Creatine Kinase Index CK-MB (CK-2) C-Reactive Protein Total Protein Albumin Total Amylase Lipase Urine Color Urine Appearance Urine pH Ur Specific [place] Urine Protein Urine Glucose (UA) Urine Ketones Urine Blood Urine Nitrite Urine Bilirubin Urine Urobilinogen Ur Leukocyte Esterase Active Medications Generic Name Dose Route Start Last Admin Trade Name Freq PRN Reason Stop Dose Admin Ceftriaxone Sodium 2 gm/ 100 mls @ 200 mls/hr 04/28/19 10:00 04/29/19 11:21 Dextrose IVPB 200 mls/hr DAILY MURRAY Administration Protocol Metronidazole 500 mg in 100 mls @ 100 mls/hr 04/28/19 10:00 04/29/19 09:39 Flagyl 500mg Premixed Ivpb - IVPB 100 mls/hr Q8H-IV MURRAY Administration Sodium Chloride 1,000 mls @ 125 mls/hr 04/28/19 18:39 04/29/19 02:08 Normal Saline - IV 125 mls/hr ASDIR MURRAY Administration Pantoprazole Sodium 40 mg 04/29/19 10:00 04/29/19 10:31 Protonix Iv IVPUSH 40 mg DAILY MURRAY Administration ASSESSMENT/PLAN: Problem List - Problems (1) Abdominal pain Assessment/Plan: patient presents with abdominal pain, mild nausea and no vomiting CTAP shows multple small gallstones with positive murphys sign with dilated CBD MRCP shows cholelithiasis with multiple gallstones, no evidence of pericholecystic fluid collection or masses. Total bili initially 3.5, now trending down Has elevated liver enzymes, also trending down. hepatitis panel sent and pending. on Ceftriaxone/Flagyl NPO per Dr. Lopez Code(s): R10.9 - UNSPECIFIED ABDOMINAL PAIN (2) Choledocholithiasis Code(s): K80.50 - CALCULUS OF BILE DUCT W/O CHOLANGITIS OR CHOLECYST W/O OBST (3) Elevated liver enzymes Assessment/Plan: Elevated liver function hepatitis panel ordered Code(s): R74.8 - ABNORMAL LEVELS OF OTHER SERUM ENZYMES (4) Multiple gallstones Assessment/Plan: GI and surgery following Code(s): K80.20 - CALCULUS OF GALLBLADDER W/O CHOLECYSTITIS W/O OBSTRUCTION (5) Left flank pain Code(s): R10.9 - UNSPECIFIED ABDOMINAL PAIN (6) Prophylactic measure Assessment/Plan: fen tolerating po monitor electrolytes advance diet per GI full code Code(s): Z29.9 - ENCOUNTER FOR PROPHYLACTIC MEASURES, UNSPECIFIED Visit type - Emergency Visit Emergency Visit: Yes ED Registration Date: 04/27/19 Care time: The patient presented to the Emergency Department on the above date and was hospitalized for further evaluation of their emergent condition. - New Patient This patient is new to me today: No - Critical Care Critical Care patient: No - Discharge Referral Referred to [facility] Med [facility].C.: No
--- NOTE | 2019-04-29 19:01 | PN ---
Progress Note (short form) - Note Progress Note: Pt seen/examined, feeling better, no further abdominal pain. MRCP revealing gallstones, no CBD stones or ductal dilation. LFTs improving. On examination: Pt sitting in chair, appears well Abd soft, nt, nd Labs reviewed. CBC, BMP 04/29/19 08:34 04/29/19 08:34 49yo male with abdominal pain with elevated LFTs and gallstones. No cbd stones or ductal dilation on MRI. -No indication for ERCP at this time -Monitor LFT trend to ensure normalization -Further recommendations per surgery regarding timing of lap bj
[2019-04-30] MEDS ORDERED: DEXTROSE 5%-WATER 100 ML IVPB ONE (11:01)
[2019-04-30] MEDS: PANTOPRAZOLE SODIUM 40 MG VIAL IVPUSH SCH (11:04)
[2019-04-30] MEDS: CEFTRIAXONE 2 GM in DEXTROSE 5%-WATER 100 ML IVPB SCH (11:04)
[2019-04-30 12:37] LABS: BASO % 0.8 % (0-2.0); EOS % 2.4 % (0-4.5); HEMATOCRIT 42.8 % (35.4-49); HEMOGLOBIN 14.2 GM/dL (11.7-16.9); LYMPH % 20.4 % (8-40); MCH 30.4 pg (25.7-33.7); MCHC 33.3 g/dl (32.0-35.9); MEAN CELL VOLUME 91.3 fl (80-96); MEAN PLT VOLUME 9.4 fl (7.5-11.1); NEUT % 70.4 % (42.8-82.8); PLATELET COUNT 152 K/MM3 (134-434); RBC 4.69 M/mm3 (4.00-5.60); RDW 14.9 % (11.9-15.9); WHITE BLOOD COUNT 5.3 K/mm3 (4.0-10.0)
[2019-04-30 13:17] LABS: ALBUMIN 3.6 g/dl (3.4-5.0); BILIRUBIN,TOTAL 0.4 mg/dL (0.2-1); BLOOD UREA NITROGEN 6.9 mg/dL (7-18); CALCIUM 9.1 mg/dL (8.5-10.1); MAGNESIUM 1.9 mg/dL (1.8-2.4); POTASSIUM 4.1 mmol/L (3.5-5.1); TOT PROT 7.7 g/dl (6.4-8.2)
[2019-04-30 13:29] LABS: INR 1.07 (0.83-1.09); PROTHROMBIN TIME (PATIENT) 12.6 SEC (9.7-13.0)
--- NOTE | 2019-04-30 13:34 | PN ---
Physical Exam: SUBJECTIVE: Patient seen and examined at the bedside. feels well, in no acute distress. family at bedside. OBJECTIVE: Patient is a 49 year-old male with a past medical history significant for kidney stones, GERD, and s/p gastric sleeve x 4 years ago. Presents to ED on for evaluation of abdominal pain x 6 days. Patient reports the pain is in his middle upper abdomen. The pain waxes and wanes but never goes completely away. It is accompanied by mild nausea, no vomiting. Patient for a planned lap bj today with Dr. Lopez. Vital Signs Period Temp Pulse Resp BP Sys/Ferrari Pulse Ox Last 24 Hr 97.6 F-98.1 F 68-76 20-20 114-118/59-86 96-96 GENERAL: The patient is awake, alert, and fully oriented, in no acute distress. HEAD: Normal with no signs of trauma. EYES: PERRL, extraocular movements intact, sclera anicteric, conjunctiva clear. No ptosis. ENT: Ears normal, nares patent, oropharynx clear without exudates, moist mucous membranes. NECK: Trachea midline, full range of motion, supple. LUNGS: Breath sounds equal, clear to auscultation bilaterally, no wheezes, no crackles, no accessory muscle use. HEART: Regular rate and rhythm, ABDOMEN: Soft, nontender, nondistended, normoactive bowel sounds EXTREMITIES: no edema. NEUROLOGICAL: Normal speech, gait not observed. PSYCH: Normal mood, normal affect. SKIN: Warm, dry, normal turgor, no rashes or lesions noted Laboratory Results - last 24 hr 04/29/19 04/30/19 04/30/19 08:34 11:50 11:50 WBC 5.3 RBC 4.69 Hgb 14.2 Hct 42.8 MCV 91.3 MCH 30.4 MCHC 33.3 RDW 14.9 Plt Count 152 MPV 9.4 Absolute Neuts (auto) 3.7 Neutrophils % 70.4 Lymphocytes % 20.4 Monocytes % 6.0 Eosinophils % 2.4 Basophils % 0.8 Nucleated RBC % 0 PT with INR 12.60 INR 1.07 Sodium Potassium Chloride Carbon Dioxide Anion Gap BUN Creatinine Est GFR (CKD-EPI)AfAm Est GFR (CKD-EPI)NonAf Random Glucose Calcium Magnesium Total Bilirubin AST ALT Alkaline Phosphatase Total Protein Albumin Hep C Ab Diagnostic <0.1 04/30/19 11:50 WBC RBC Hgb Hct MCV MCH MCHC RDW Plt Count MPV Absolute Neuts (auto) Neutrophils % Lymphocytes % Monocytes % Eosinophils % Basophils % Nucleated RBC % PT with INR INR Sodium 139 Potassium 4.1 Chloride 104 Carbon Dioxide 29 Anion Gap 6 L BUN 6.9 L Creatinine 1.0 Est GFR (CKD-EPI)AfAm 101.26 Est GFR (CKD-EPI)NonAf 87.37 Random Glucose 94 Calcium 9.1 Magnesium 1.9 Total Bilirubin 0.4 AST 122 H ALT 308 H Alkaline Phosphatase 212 H Total Protein 7.7 Albumin 3.6 Hep C Ab Diagnostic Active Medications Generic Name Dose Route Start Last Admin Trade Name Freq PRN Reason Stop Dose Admin Ceftriaxone Sodium 2 gm/ 100 mls @ 200 mls/hr 04/28/19 10:00 04/30/19 11:04 Dextrose IVPB 200 mls/hr DAILY MURRAY Administration Protocol Metronidazole 500 mg in 100 mls @ 100 mls/hr 04/28/19 10:00 04/30/19 10:16 Flagyl 500mg Premixed Ivpb - IVPB 100 mls/hr Q8H-IV MRURAY Administration Sodium Chloride 1,000 mls @ 125 mls/hr 04/28/19 18:39 04/29/19 21:48 Normal Saline - IV 125 mls/hr ASDIR MURRAY Administration Pantoprazole Sodium 40 mg 04/29/19 10:00 04/30/19 11:04 Protonix Iv IVPUSH 40 mg DAILY MURRAY Administration ASSESSMENT/PLAN: Problem List - Problems (1) Abdominal pain Assessment/Plan: patient presents with abdominal pain, mild nausea and no vomiting CTAP shows multple small gallstones with positive murphys sign with dilated CBD MRCP shows cholelithiasis with multiple gallstones, no evidence of pericholecystic fluid collection or masses. for a lap bj today with Dr. Lopez. Code(s): R10.9 - UNSPECIFIED ABDOMINAL PAIN (2) Choledocholithiasis Code(s): K80.50 - CALCULUS OF BILE DUCT W/O CHOLANGITIS OR CHOLECYST W/O OBST (3) Elevated liver enzymes Assessment/Plan: liver enzymes trending down. hepatitis panel ordered Code(s): R74.8 - ABNORMAL LEVELS OF OTHER SERUM ENZYMES (4) Multiple gallstones Assessment/Plan: GI and surgery following Code(s): K80.20 - CALCULUS OF GALLBLADDER W/O CHOLECYSTITIS W/O OBSTRUCTION (5) Left flank pain Code(s): R10.9 - UNSPECIFIED ABDOMINAL PAIN (6) Prophylactic measure Assessment/Plan: fen tolerating po monitor electrolytes advance diet per surgery full code Code(s): Z29.9 - ENCOUNTER FOR PROPHYLACTIC MEASURES, UNSPECIFIED Visit type - Emergency Visit Emergency Visit: Yes ED Registration Date: 04/27/19 Care time: The patient presented to the Emergency Department on the above date and was hospitalized for further evaluation of their emergent condition. - New Patient This patient is new to me today: No - Critical Care Critical Care patient: No - Discharge Referral Referred to [facility] Med P.C.: No
--- NOTE | 2019-04-30 17:17 | PN ---
Progress Note (short form) - Note Progress Note: Attending Surgeon For lap bj possible open today; risk; benefit ;an technique d/w the patient yesterday and today; reviewed MRCP findings w/him and reasons to proceed w/ surgery; he understands this and informed consent was obtained. Rick Lopez MD FACS
[2019-04-30] MEDS ORDERED: MIDAZOLAM HCL 2 MG/2 ML SINGLE DOSE VIAL ONE (17:53)
[2019-04-30] MEDS ORDERED: PROPOFOL 20 ML ONE ×2 (17:53)
[2019-04-30] MEDS ORDERED: fentaNYL CITRATE 250 MCG/5 ML VIAL ONE (17:53)
[2019-04-30] MEDS ORDERED: LIDOCAINE HCL/PF 2% SDV 5ML VIAL ONE (17:54)
[2019-04-30] MEDS ORDERED: GLYCOPYRROLATE 0.2 MG/1 ML VIAL ONE (17:54)
[2019-04-30] MEDS ORDERED: LIDOCAINE HCL 2% JELLY (5 ML/TUBE) ONE (17:54)
[2019-04-30] MEDS ORDERED: DEXAMETHASONE SOD PHOSPHATE 4 MG/1 ML VIAL ONE (17:54)
[2019-04-30] MEDS ORDERED: ceFAZolin SODIUM 1 GM VIAL ONE (17:54)
[2019-04-30] MEDS ORDERED: cefOXitin SODIUM 2 GM VIAL (RESTRICTED TO ID) IVPB ONE (18:16)
[2019-04-30] MEDS ORDERED: ROCURONIUM BROMIDE 50 MG/5 ML SYRINGE ONE (18:53)
[2019-04-30] MEDS ORDERED: NEOSTIGMINE METHYLSULFATE 0.5 MG/ML - 10 ML MDV ONE (19:12)
[2019-04-30] MEDS ORDERED: BUPIVACAINE HCL/PF 0.5% (5 MG/ML) 30 ML VIAL IJ ONE ×3 (19:31)
[2019-04-30] MEDS ORDERED: oxyCODONE HCL 5 MG TABLET PO PRN (20:08)
[2019-04-30] MEDS: ACETAMINOPHEN 1000 MG/100 ML VIAL (NON FORMULARY) IVPB PRN (20:10)
--- NOTE | 2019-04-30 20:12 | SURG ---
Surgery Corporate Tax Preparer Note Corporate Tax Preparer: Sena Alvarado PA-C Date of Service: 04/30/19 Diagnosis: acute cholecystitis/cholelithiasis Procedure: laparoscopic cholecystectomy I was present for the entirety of the operative procedure. For further detail, please refer to operative report. Visit type - Case Type Case Type: ED Admission - Emergency Emergency Visit: Yes ED Registration Date: 04/27/19 Care time: The patient presented to the Emergency Department on the above date and was hospitalized for further evaluation of their emergent condition. - New patient This patient is new to me today: Yes Date on this admission: 04/30/19
[2019-04-30] MEDS ORDERED: LACTATED RINGERS SOLUTION 1,000 ML IV SCH (20:15)
[2019-04-30] MEDS ORDERED: ONDANSETRON 4 MG/2 ML VIAL IVPUSH PRN (20:15)
[2019-04-30] MEDS: SODIUM CHLORIDE 1,000 ML IV SCH (21:45)
[2019-04-30] MEDS: oxyCODONE HCL 5 MG TABLET PO PRN (23:41)
[2019-05-01] MEDS: ACETAMINOPHEN 1000 MG/100 ML VIAL (NON FORMULARY) IVPB PRN ×2 (02:12→09:25)
--- NOTE | 2019-05-01 08:20 | PN ---
Progress Note (short form) - Note Progress Note: Surgery POD#1 lap bj patient seen and examined at bedside with no complaints. He ate chips overnight despite being NPO. He states he has minimal pain and denies any CP, SOB, N/V, fever or chills. Vital Signs Temp 98.5 F 05/01/19 14:17 Pulse 93 H 05/01/19 14:17 Resp 20 05/01/19 14:17 BP 120/56 L 05/01/19 14:17 Pulse Ox 94 L 04/30/19 22:00 Intake & Output 04/30/19 05/01/19 05/01/19 23:59 11:59 23:59 Intake Total 2750 1520 Output Total 2135 110 Balance 615 1410 Intake: IV 2550 1000 Normal Saline - 1,000 ml 800 1000 @ 125 mls/hr IV ASDIR MURRAY Rx#:[id number] Normal Saline - 1,000 ml 300 @ 125 mls/hr IV ASDIR MURRAY Rx#:[id number] IVPB 200 100 Oral Supplement 420 Output: Drainage 290 110 Right Abdomen 40 110 Urine 1825 Void 425 Estimated Blood Loss 20 Other: Voiding Method Urinal # Unmeasured Voids Void 2 Bowel Movement No No CBC, BMP 05/01/19 10:30 05/01/19 10:30 PE: A&Ox3, NAD Unlabored resp on RA ABD: obese, soft, ND with mild TTP throughout appropriate to status, dressings c /d/i with surrounding tissue intact and no evidence of tracking erythema or active d/c B/L LE compartments soft, supple and non-tender with +2 DP pulses. Problem List - Problems (1) S/P laparoscopic cholecystectomy Assessment/Plan: POD #1 lap bj patient doing well already tolerating diet. -Advance diet as tolerated-regular diet -OOB as tolerated- encourage ambulation -Daily IS -Trend drain output - trend labs -d/c planning for home once drain removed and medically stable. Evaluation and plan discussed with Dr Lopez. Code(s): Z90.49 - ACQUIRED ABSENCE OF OTHER SPECIFIED PARTS OF DIGESTIVE TRACT
[2019-05-01] MEDS: SODIUM CHLORIDE 1,000 ML IV SCH (08:48)
--- NOTE | 2019-05-01 08:58 | OP ---
Operative Note - Note: Operative Date: 04/30/19 Pre-Operative Diagnosis: acute cholecystitis/cholelithiasis/resolved choledocholithiasis Operation: laparoscopic cholecystectomy Findings: tntc tiny cholelithiasis Post-Operative Diagnosis: Same as Pre-op Surgeon: Rick Lopez Information Technology Assistant: Sena Alvarado Anesthesiologist/ACCORDION REPAIRER: Claire Crowder Anesthesia: General Specimens Removed: gallbladder and contents Estimated Blood Loss (mls): 50 Drains & Tubes with Location: 10 mm BRIANNA
[2019-05-01] MEDS: PANTOPRAZOLE SODIUM 40 MG VIAL IVPUSH SCH (09:18)
--- NOTE | 2019-05-01 10:15 | OP ---
DATE OF OPERATION: 04/30/2019 PREOPERATIVE DIAGNOSIS: Acute cholecystitis, cholelithiasis and resolved choledocholithiasis. POSTOPERATIVE DIAGNOSIS: Acute cholecystitis, cholelithiasis and resolved choledocholithiasis. PROCEDURE: Laparoscopic cholecystectomy. SURGEON: Rick Lopez MD PIPE CHIPPER: Sena Alvarado PA-C ANESTHESIA: General. OPERATIVE FINDINGS: There were too numerous to count tiny stones within the gallbladder. There was mild inflammation. The rest of the findings were unremarkable. PROCEDURE: The patient was placed on the operating table in the supine position and after the induction of general anesthesia the patient's abdomen was prepped with ChloraPrep and draped in sterile fashion. A timeout was taken and pneumoperitoneum established above the umbilicus using a Veress needle. Once 15 mmHg of pressure were obtained, a 5-mm port was placed at the umbilicus and additional lateral 5-mm ports and a subxiphoid 12-mm port. Laparoscopy was carried out and the previously noted findings were observed. Dissection was begun at the neck of the gallbladder where the peritoneum was opened medially and laterally using blunt dissection and electrocautery. The cystic duct was identified coursing from the neck of the gallbladder towards the common bile duct and it was dissected using blunt dissection proximally and distally for length. Similarly, the artery was identified and dissected proximally and distally for length. A critical view of safety was taken and then the duct and the artery were clipped twice proximally and twice distally with large hemoclips. The duct and artery were then serially divided using Endoshears. Hemostasis was checked for and noted to be good and then the gallbladder was removed from the liver bed in a retrograde fashion using electrocautery. Prior to removal from the edge of the liver, hemostasis in the liver bed was again checked for and noted to be good and then the gallbladder removed from the edge of the liver, placed in an EndoCatch , and brought out through the subxiphoid port. Pneumoperitoneum was reestablished. Copious irrigation was carried out with saline. Hemostasis was verified again. A 10-mm Juan Pablo-Ferguson drain was placed in the right hepatorenal fossa and brought out through 1 of the 5-mm ports and secured to the skin with 2-0 silk suture. All port sites were removed under laparoscopic vision without evidence of bleeding from the port sites. The port sites were infiltrated with 0.5% Marcaine and the skin edges reapproximated with 4-0 Biosyn in a subcuticular continuous fashion. Steri-Strips and Band-Aid dressings were placed. The drain was connected to bulb suction and then the patient aroused from general anesthesia and transferred to the postanesthesia care unit in stable condition, awake and alert. ESTIMATED BLOOD LOSS: 50 mL. REPLACEMENT: Crystalloid. DRAINS: One 10-mm Juan Pablo-Ferguson in the gallbladder fossa. SPECIMEN: Gallbladder and contents to Pathology. I, Rick Lopez, was physically present in the operating room from the time the patient was placed on the operating table until he was transferred to the postanesthesia care unit in [employer]. MD RAGHAV Chong/[id number] MTDD
[2019-05-01 11:27] LABS: BASO % 0.4 % (0-2.0); EOS % 0.1 % (0-4.5); HEMATOCRIT 39.7 % (35.4-49); HEMOGLOBIN 13.5 GM/dL (11.7-16.9); LYMPH % 9.9 % (8-40); MCH 30.8 pg (25.7-33.7); MEAN CELL VOLUME 90.3 fl (80-96); MEAN PLT VOLUME 9.5 fl (7.5-11.1); MONO % 4.8 % (3.8-10.2); NEUT % 84.8 % (42.8-82.8); PLATELET COUNT 142 K/MM3 (134-434); RDW 14.5 % (11.9-15.9); WHITE BLOOD COUNT 8.9 K/mm3 (4.0-10.0)
[2019-05-01] MEDS ORDERED: ACETAMINOPHEN 325 MG TABLET (FP) PO PRN (11:51)
[2019-05-01 11:57] LABS: ALBUMIN 3.2 g/dl (3.4-5.0); BILIRUBIN,TOTAL 0.6 mg/dL (0.2-1); CALCIUM 8.6 mg/dL (8.5-10.1); CREATININE 0.9 mg/dL (0.55-1.3); MAGNESIUM 1.7 mg/dL (1.8-2.4); POTASSIUM 3.8 mmol/L (3.5-5.1); TOT PROT 6.7 g/dl (6.4-8.2)
--- NOTE | 2019-05-01 14:11 | PN ---
Progress Note (short form) - Note Progress Note: Anesthesia Post op Pt seen and examined S:alert and awake O: CBC, BMP 05/01/19 10:30 05/01/19 10:30 Vital Signs Temperature 98.3 F 05/01/19 07:42 Pulse Rate 96 H 05/01/19 07:42 Respiratory Rate 20 05/01/19 07:42 Blood Pressure 120/70 05/01/19 07:42 O2 Sat by Pulse Oximetry (%) 94 L 04/30/19 22:00 A/P: Current Active Problems Abdominal pain (Acute) Choledocholithiasis (Acute) Elevated liver enzymes (Acute) Multiple gallstones (Acute) Prophylactic measure (Acute) s/p lap bj Doing well post op Continue current care Sandip Knowles
--- NOTE | 2019-05-01 14:20 | PN ---
Physical Exam: SUBJECTIVE: Patient seen and examined at the bedside. in no acute distress, denies pain, no nausea or vomiting, tolerating diet. OBJECTIVE: Patient is a 49 year-old male with a past medical history significant for kidney stones, GERD, and s/p gastric sleeve x 4 years ago. Presents to ED on for evaluation of abdominal pain x 6 days. Patient reports the pain is in his middle upper abdomen. The pain waxes and wanes but never goes completely away. It is accompanied by mild nausea, no vomiting. Patient is s/p lap bj with Dr. Lopez. Vital Signs Period Temp Pulse Resp BP Sys/Ferrari Pulse Ox Last 24 Hr 97.9 F-99.0 F 72-96 16-26 113-141/56-84 93-100 GENERAL: The patient is awake, alert, and fully oriented, in no acute distress. HEAD: Normal with no signs of trauma. EYES: PERRL, extraocular movements intact, sclera anicteric, conjunctiva clear. No ptosis. ENT: Ears normal, nares patent, oropharynx clear without exudates, moist mucous membranes. NECK: Trachea midline, full range of motion, supple. LUNGS: Breath sounds equal, clear to auscultation bilaterally, no wheezes, no crackles, no accessory muscle use. HEART: Regular rate and rhythm, ABDOMEN: Soft, nontender, c/d/i surgical site, david drain with small amt of sero sang drainage. EXTREMITIES: no edema. NEUROLOGICAL: Normal speech, gait not observed. PSYCH: Normal mood, normal affect. SKIN: Warm, dry, normal turgor, no rashes or lesions noted Laboratory Results - last 24 hr 04/29/19 05/01/19 05/01/19 08:34 10:30 10:30 WBC 8.9 RBC 4.40 Hgb 13.5 Hct 39.7 MCV 90.3 MCH 30.8 MCHC 34.0 RDW 14.5 Plt Count 142 MPV 9.5 Absolute Neuts (auto) 7.6 Neutrophils % 84.8 H D Lymphocytes % 9.9 D Monocytes % 4.8 Eosinophils % 0.1 D Basophils % 0.4 Nucleated RBC % 0 Sodium 135 L Potassium 3.8 Chloride 103 Carbon Dioxide 24 Anion Gap 8 BUN 8.0 Creatinine 0.9 Est GFR (CKD-EPI)AfAm 115.02 Est GFR (CKD-EPI)NonAf 99.24 Random Glucose 94 Calcium 8.6 Magnesium 1.7 L Total Bilirubin 0.6 AST 105 H ALT 236 H Alkaline Phosphatase 171 H Total Protein 6.7 Albumin 3.2 L Smooth Musc &[employer]PER[employer] Intrp 10 Active Medications Generic Name Dose Route Start Last Admin Trade Name Freq PRN Reason Stop Dose Admin Acetaminophen 650 mg 05/01/19 11:51 Tylenol - PO Q6H PRN PAIN LEVEL 1-3 Sodium Chloride 1,000 mls @ 125 mls/hr 04/30/19 20:09 05/01/19 08:48 Normal Saline - IV 125 mls/hr ASDIR MURRAY Administration Oxycodone HCl 5 mg 04/30/19 20:08 Roxicodone - PO Q4H PRN PAIN LEVEL 4-6 Oxycodone HCl 10 mg 04/30/19 20:08 04/30/19 23:41 Roxicodone - PO 10 mg Q4H PRN Administration PAIN LEVEL 7-10 Pantoprazole Sodium 40 mg 05/01/19 10:00 05/01/19 09:18 Protonix Iv IVPUSH 40 mg DAILY MURRAY Administration ASSESSMENT/PLAN: Problem List - Problems (1) S/P laparoscopic cholecystectomy Assessment/Plan: s/p lap bj with Dr. Lopez on 04/30/2019, now with david drain on a regular diet monitor pain levels, vitals and encourage early ambulation/incentive spriometer Code(s): Z90.49 - ACQUIRED ABSENCE OF OTHER SPECIFIED PARTS OF DIGESTIVE TRACT (2) Abdominal pain Assessment/Plan: resolved, s/p lap jb Code(s): R10.9 - UNSPECIFIED ABDOMINAL PAIN (3) Choledocholithiasis Assessment/Plan: s/p lap bj Code(s): K80.50 - CALCULUS OF BILE DUCT W/O CHOLANGITIS OR CHOLECYST W/O OBST (4) Elevated liver enzymes Assessment/Plan: liver enzymes trending down. hepatitis panel ordered Code(s): R74.8 - ABNORMAL LEVELS OF OTHER SERUM ENZYMES (5) Multiple gallstones Code(s): K80.20 - CALCULUS OF GALLBLADDER W/O CHOLECYSTITIS W/O OBSTRUCTION (6) Left flank pain Assessment/Plan: resolved Code(s): R10.9 - UNSPECIFIED ABDOMINAL PAIN (7) Prophylactic measure Code(s): Z29.9 - ENCOUNTER FOR PROPHYLACTIC MEASURES, UNSPECIFIED Visit type - Emergency Visit Emergency Visit: Yes ED Registration Date: 04/27/19 Care time: The patient presented to the Emergency Department on the above date and was hospitalized for further evaluation of their emergent condition. - New Patient This patient is new to me today: No - Critical Care Critical Care patient: No - Discharge Referral Referred to [facility] Med P.C.: No
[2019-05-01] MEDS: oxyCODONE HCL 5 MG TABLET PO PRN ×2 (15:28→21:08)
--- NOTE | 2019-05-01 18:16 | PN.GI ---
GI Progress Note Subjective: POD 1 s/p Lap Marisa Overall states feeling well HCV Ab neg - Objective Vital Signs: Vital Signs Temperature 98.5 F 05/01/19 14:17 Pulse Rate 93 H 05/01/19 14:17 Respiratory Rate 20 05/01/19 14:17 Blood Pressure 120/56 L 05/01/19 14:17 O2 Sat by Pulse Oximetry (%) 94 L 04/30/19 22:00 Constitutional: Calm Eyes: No: Sclera Icterus Cardiovascular: Yes: Regular Rate and Rhythm. No: Murmur Respiratory: Yes: CTA Bilaterally Gastrointestinal Inspection: Yes: Scars (trochar scars, + BRIANNA drain in RUQ w/ serosanguinous drainage). No: Distention ...Auscultate: Yes: Normoactive Bowel Sounds ...Palpate: Yes: Tenderness (TTP at trochar sites) Edema: No (No LE edema) Neurological: Yes: Alert Labs: CBC, BMP 05/01/19 10:30 05/01/19 10:30 INR, PTT INR 1.07 (0.83-1.09) 04/30/19 11:50 Problem List - Problems (1) Elevated liver enzymes Assessment/Plan: Suspected passsed CBD stone. Now S/P Lap Marisa Continue to monitor LFTs Post op care per Surgery Code(s): R74.8 - ABNORMAL LEVELS OF OTHER SERUM ENZYMES
[2019-05-01 20:07] LABS: HEP B CORE AB, TOT Negative (Negative)
[2019-05-02] MEDS: SODIUM CHLORIDE 1,000 ML IV SCH (04:12)
[2019-05-02 06:05] LABS: ALPHA 2 MACROGLOBULINS,QN 126 mg/dL (110-276); ALT(SGPT)P5P 382 IU/L (0-55); CHOLESTEROL TOTAL 227 mg/dL (100-199); FIBROSIS SCORE 0.47 (0.00-0.21); GLUCOSE SERUM 82 mg/dL (65-99); HEIGHT 69 in (.); WEIGHT- 249 LBS (.)
[2019-05-02] MEDS: PANTOPRAZOLE SODIUM 40 MG VIAL IVPUSH SCH (09:10)
--- NOTE | 2019-05-02 09:46 | PN ---
Physical Exam: SUBJECTIVE: Patient seen and examined OBJECTIVE: Vital Signs Period Temp Pulse Resp BP Sys/Ferrari Pulse Ox Last 24 Hr 97.8 F-98.5 F 84-101 18-20 108-120/56-80 85 GENERAL: The patient is awake, alert, and fully oriented, in no acute distress. HEAD: Normal with no signs of trauma. EYES: PERRL, extraocular movements intact, sclera anicteric, conjunctiva clear. No ptosis. ENT: Ears normal, nares patent, oropharynx clear without exudates, moist mucous membranes. NECK: Trachea midline, full range of motion, supple. LUNGS: Breath sounds equal, clear to auscultation bilaterally, no wheezes, no crackles, no accessory muscle use. HEART: Regular rate and rhythm, S1, S2 without murmur, rub or gallop. ABDOMEN: Soft, nontender, nondistended, normoactive bowel sounds, no guarding, no rebound, no hepatosplenomegaly, no masses. EXTREMITIES: 2+ pulses, warm, well-perfused, no edema. NEUROLOGICAL: Cranial nerves II through XII grossly intact. Normal speech, gait not observed. PSYCH: Normal mood, normal affect. SKIN: Warm, dry, normal turgor, no rashes or lesions noted Laboratory Results - last 24 hr 04/29/19 04/29/19 05/01/19 08:34 08:34 10:30 WBC 8.9 RBC 4.40 Hgb 13.5 Hct 39.7 MCV 90.3 MCH 30.8 MCHC 34.0 RDW 14.5 Plt Count 142 MPV 9.5 Absolute Neuts (auto) 7.6 Neutrophils % 84.8 H D Lymphocytes % 9.9 D Monocytes % 4.8 Eosinophils % 0.1 D Basophils % 0.4 Nucleated RBC % 0 Haptoglobin 150 Sodium Potassium Chloride Carbon Dioxide Anion Gap BUN Creatinine Est GFR (CKD-EPI)AfAm Est GFR (CKD-EPI)NonAf Glucose 82 Random Glucose Calcium Magnesium Total Bilirubin 0.5 GGT 938 H AST 135 H ALT 382 H Alkaline Phosphatase Liver Fibrosis Score 0.47 H Liver Fibrosis Stage F1-f2 Liver Steatosis Score 0.98 H Liver Steatosis Grade Total Protein Albumin Dsene-7-Jdklfenmorzbb 126 Triglycerides 177 H Cholesterol 227 H Apolipoprotein A-1 96 L Patient Height (cm) 69 Patient Weight (kg) 249 CSF IgG Interpretation Hep A IgM Ab Confirm Negative Hepatitis A Ab Total Negative Hep Bs Antigen Negative Hep Bs Antibody Non reactive Hep B Core Total Ab Negative Hep B Core IgM Ab Negative Hepatitis Be Antibody Negative Hepatitis Be Antigen Negative 05/01/19 10:30 WBC RBC Hgb Hct MCV MCH MCHC RDW Plt Count MPV Absolute Neuts (auto) Neutrophils % Lymphocytes % Monocytes % Eosinophils % Basophils % Nucleated RBC % Haptoglobin Sodium 135 L Potassium 3.8 Chloride 103 Carbon Dioxide 24 Anion Gap 8 BUN 8.0 Creatinine 0.9 Est GFR (CKD-EPI)AfAm 115.02 Est GFR (CKD-EPI)NonAf 99.24 Glucose Random Glucose 94 Calcium 8.6 Magnesium 1.7 L Total Bilirubin 0.6 GGT AST 105 H ALT 236 H Alkaline Phosphatase 171 H Liver Fibrosis Score Liver Fibrosis Stage Liver Steatosis Score Liver Steatosis Grade Total Protein 6.7 Albumin 3.2 L Gmlkf-1-Odsyvgkvafeid Triglycerides Cholesterol Apolipoprotein A-1 Patient Height (cm) Patient Weight (kg) CSF IgG Interpretation Hep A IgM Ab Confirm Hepatitis A Ab Total Hep Bs Antigen Hep Bs Antibody Hep B Core Total Ab Hep B Core IgM Ab Hepatitis Be Antibody Hepatitis Be Antigen Active Medications Generic Name Dose Route Start Last Admin Trade Name Freq PRN Reason Stop Dose Admin Acetaminophen 650 mg 05/01/19 11:51 05/02/19 05:10 Tylenol - PO 650 mg Q6H PRN Administration PAIN LEVEL 1-3 Docusate Sodium 100 mg 05/02/19 14:00 Colace - PO TID MURRAY Oxycodone HCl 5 mg 04/30/19 20:08 Roxicodone - PO Q4H PRN PAIN LEVEL 4-6 Oxycodone HCl 10 mg 04/30/19 20:08 05/01/19 21:08 Roxicodone - PO 10 mg Q4H PRN Administration PAIN LEVEL 7-10 Pantoprazole Sodium 40 mg 05/02/19 10:00 Protonix - PO DAILY [facility] Polyethylene Glycol 17 gm 05/02/19 10:00 Miralax (For Daily Use) - PO DAILY [facility] ASSESSMENT/PLAN: Problem List - Problems (1) S/P laparoscopic cholecystectomy Code(s): Z90.49 - ACQUIRED ABSENCE OF OTHER SPECIFIED PARTS OF DIGESTIVE TRACT (2) Abdominal pain Code(s): R10.9 - UNSPECIFIED ABDOMINAL PAIN (3) Choledocholithiasis Code(s): K80.50 - CALCULUS OF BILE DUCT W/O CHOLANGITIS OR CHOLECYST W/O OBST (4) Elevated liver enzymes Code(s): R74.8 - ABNORMAL LEVELS OF OTHER SERUM ENZYMES (5) Multiple gallstones Code(s): K80.20 - CALCULUS OF GALLBLADDER W/O CHOLECYSTITIS W/O OBSTRUCTION (6) Left flank pain Code(s): R10.9 - UNSPECIFIED ABDOMINAL PAIN (7) Prophylactic measure Code(s): Z29.9 - ENCOUNTER FOR PROPHYLACTIC MEASURES, UNSPECIFIED
[2019-05-02] MEDS ORDERED: PANTOPRAZOLE 40 MG TABLET PO SCH (10:00)
[2019-05-02] MEDS ORDERED: POLYETHYLENE GLYCOL 3350 119 GM BTL PO SCH (10:00)
--- NOTE | 2019-05-02 11:08 | PN ---
Progress Note (short form) - Note Progress Note: Attending Surgeon POD#2 No c/o; tolerating diet and ambulating. VSS AF abdo-soft; port sites c/d/i; BRIANNA minimal and serous; o/w negative IMP: stable post op for discharge PLAN: Drain removed uneventfully and stable for discharge to office f/u next week in the office; dietary instructions given. Rick Lopez MD FACS
--- NOTE | 2019-05-02 11:14 | PN ---
Progress Note (short form) - Note Progress Note: Denies abdominal pain. Drain removed by Dr Lopez. LFTs still elevated but trending down. Tolerating diet. Case discussed with Dr Lopez. No GI intervention planned, will not follow unless called again.
[2019-05-02 11:16] VITALS: BP 125/75; PULSE 94; TEMP 97.7
--- NOTE | 2019-05-02 11:43 | DS ---
Physical Exam: SUBJECTIVE: Patient seen and examined at the bedside. he denies any abdominal pain, no nausea or vomiting. reports mild soreness to surgical site that is tolerable. patient agrees to follow up with surgery on discharge. OBJECTIVE: discharge home, he has been cleared by Dr. Lopez for outpatient follow up. Patient is a 49 year-old male with a past medical history significant for kidney stones, GERD, and s/p gastric sleeve x 4 years ago. Presents to ED on for evaluation of abdominal pain x 6 days. Patient reports the pain is in his middle upper abdomen. The pain waxes and wanes but never goes completely away. It is accompanied by mild nausea, no vomiting. Patient is s/p lap bj with Dr. Lopez. Vital Signs Period Temp Pulse Resp BP Sys/Ferrari Pulse Ox Last 24 Hr 97.7 F-98.5 F 84-101 18-20 108-125/56-75 85-94 PHYSICAL EXAM GENERAL: The patient is awake, alert, and fully oriented, in no acute distress. HEAD: Normal with no signs of trauma. EYES: PERRL, extraocular movements intact, sclera anicteric, conjunctiva clear. No ptosis. ENT: Ears normal, nares patent, oropharynx clear without exudates, moist mucous membranes. NECK: Trachea midline, full range of motion, supple. LUNGS: Breath sounds equal, clear to auscultation bilaterally, no wheezes, no crackles, no accessory muscle use. HEART: Regular rate and rhythm, ABDOMEN: Soft, nontender, c/d/i surgical site, david drain with small amt of sero sang drainage, removed today by surgery EXTREMITIES: no edema. NEUROLOGICAL: Normal speech, gait not observed. PSYCH: Normal mood, normal affect. SKIN: Warm, dry, normal turgor, no rashes or lesions noted LABS Laboratory Results - last 24 hr 04/29/19 04/29/19 05/01/19 08:34 08:34 10:30 Haptoglobin 150 Sodium 135 L Potassium 3.8 Chloride 103 Carbon Dioxide 24 Anion Gap 8 BUN 8.0 Creatinine 0.9 Est GFR (CKD-EPI)AfAm 115.02 Est GFR (CKD-EPI)NonAf 99.24 Glucose 82 Random Glucose 94 Calcium 8.6 Magnesium 1.7 L Total Bilirubin 0.5 0.6 GGT 938 H AST 135 H 105 H ALT 382 H 236 H Alkaline Phosphatase 171 H Liver Fibrosis Score 0.47 H Liver Fibrosis Stage F1-f2 Liver Steatosis Score 0.98 H Liver Steatosis Grade Total Protein 6.7 Albumin 3.2 L Peefv-6-Preacpcpiiwcb 126 Triglycerides 177 H Cholesterol 227 H Apolipoprotein A-1 96 L Patient Height (cm) 69 Patient Weight (kg) 249 CSF IgG Interpretation Hep A IgM Ab Confirm Negative Hepatitis A Ab Total Negative Hep Bs Antigen Negative Hep Bs Antibody Non reactive Hep B Core Total Ab Negative Hep B Core IgM Ab Negative Hepatitis Be Antibody Negative Hepatitis Be Antigen Negative HOSPITAL COURSE: Date of Admission:04/27/19 Date of Discharge: 05/02/19 Minutes to complete discharge: 45 Discharge Summary Problems reviewed: Yes Reason For Visit: CHOLEDOCHOLITHIAS Current Active Problems Abdominal pain (Acute) Choledocholithiasis (Acute) Elevated liver enzymes (Acute) Multiple gallstones (Acute) Prophylactic measure (Acute) S/P laparoscopic cholecystectomy (Acute) Condition: Good - Instructions Diet, Activity, Other Instructions: Dr. Lopez Discharge Instructions Dear FREDERIC WEEKS, Post Operative Instructions Physical activity Resume your normal everyday activity as tolerated no heavy lifting or exercise until seen by your surgeon. You may walk unlimited amounts of and climb stairs. You may resume driving the car when you feel safe and comfortable behind the wheel and no longer taking narcotics. Wound care If you have a bandage, leave it on, and keep dry for 48 hours. After that time discard the outer bandage. If there are tapes on the skin under the outer bandage, leave them in place. They will peel off in the next 7 to 10 days. Do Not peel them off. You may shower 2 days after surgery but do not submerge the incisions. If there are tapes present on the skin, they can get wet. Do not apply lotion or ointments to incisions. Diet There are no dietary restrictions. Eat healthy, high-fiber foods. Drink 6 to 8 glasses of liquid each day. This will assist in keeping your bowels are regular. Pain management You may take Tylenol or acetaminophen or Ibuprofen (for example, Motrin, Advil etc.) Any pain prescription medication ordered should be taken as prescribed for moderate to severe pain. Call Dr. Lopez for any of the following: Severe pain not relieved by medication Fever of 101 or higher Excessive bleeding or drainage on dressing Inability to urinate If you experience chest pain or shortness of breath please seek emergency treatment immediately. Call the office at [phone] for a post operative appointment in 7 - 10 days. You need to be seen on May 11 or ; speak with Ricardo in my office. Referrals: Socorro Romero MD [Primary Care Provider] - Disposition: HOME - Home Medications Comprehensive Discharge Medication List: Ambulatory Orders Pantoprazole Sodium [Protonix -] 40 mg PO DAILY #30 tablet.ec 05/02/19 Problem List - Problems (1) S/P laparoscopic cholecystectomy Assessment/Plan: s/p lap bj with Dr. Lopez on 04/30/2019, DAVID drain removed by surgery, patient tolerating diet, no nausea, no vomiting. denies pain. Code(s): Z90.49 - ACQUIRED ABSENCE OF OTHER SPECIFIED PARTS OF DIGESTIVE TRACT (2) Abdominal pain Assessment/Plan: resolved, s/p lap bj Code(s): R10.9 - UNSPECIFIED ABDOMINAL PAIN (3) Choledocholithiasis Assessment/Plan: s/p lap bj Code(s): K80.50 - CALCULUS OF BILE DUCT W/O CHOLANGITIS OR CHOLECYST W/O OBST (4) Elevated liver enzymes Assessment/Plan: liver enzymes trending down. followed by GI Code(s): R74.8 - ABNORMAL LEVELS OF OTHER SERUM ENZYMES (5) Multiple gallstones Assessment/Plan: Code(s): K80.20 - CALCULUS OF GALLBLADDER W/O CHOLECYSTITIS W/O OBSTRUCTION (6) Left flank pain Assessment/Plan: resolved Code(s): R10.9 - UNSPECIFIED ABDOMINAL PAIN (7) Prophylactic measure Assessment/Plan: discharge home Code(s): Z29.9 - ENCOUNTER FOR PROPHYLACTIC MEASURES, UNSPECIFIED This patient is new to me today: No Emergency Visit: Yes ED Registration Date: 04/27/19 Care time: The patient presented to the Emergency Department on the above date and was hospitalized for further evaluation of their emergent condition. Critical Care patient: No - Discharge Referral Referred to [facility] No
[2019-05-02 12:32] LABS: BASO % 0.6 % (0-2.0); EOS % 1.6 % (0-4.5); HEMATOCRIT 41.3 % (35.4-49); HEMOGLOBIN 13.8 GM/dL (11.7-16.9); LYMPH % 14.9 % (8-40); MCH 30.6 pg (25.7-33.7); MCHC 33.5 g/dl (32.0-35.9); MEAN CELL VOLUME 91.6 fl (80-96); MEAN PLT VOLUME 9.6 fl (7.5-11.1); MONO % 8.1 % (3.8-10.2); NEUT % 74.8 % (42.8-82.8); PLATELET COUNT 137 K/MM3 (134-434); RBC 4.51 M/mm3 (4.00-5.60); RDW 14.6 % (11.9-15.9); WHITE BLOOD COUNT 7.5 K/mm3 (4.0-10.0)
[2019-05-02 13:02] LABS: ALBUMIN 3.4 g/dl (3.4-5.0); BILIRUBIN,TOTAL 0.4 mg/dL (0.2-1); BLOOD UREA NITROGEN 8.8 mg/dL (7-18); CALCIUM 8.8 mg/dL (8.5-10.1); POTASSIUM 3.9 mmol/L (3.5-5.1); TOT PROT 6.8 g/dl (6.4-8.2)
[2019-05-02] MEDS ORDERED: DOCUSATE SODIUM 100 MG CAPSULE (FP) PO SCH (14:00)
--- NOTE | 2019-05-04 17:15 | PATH ---
Surgical Pathology Report Patient Name: FREDERIC WEEKS [facility]. Rec. #: [id number] /Age/Gender: 1970 (Age: 49) / M Account: [id number] Location: [address] [place] [address]/[facility] Taken: 04/30/2019 Received: 05/01/2019 Reported: 05/04/2019 Physicians: Rick Lopez MD Specimen(s) Received GALLBLADDER Clinical History Choledocholithiasis Final Diagnosis GALLBLADDER, LAPAROSCOPIC CHOLECYSTECTOMY: CHRONIC CHOLECYSTITIS WITH CHOLELITHIASIS. ONE BENIGN PERIDUCTAL LYMPH NODE (0/). Electronically Signed Socorro Jordan M.D. Gross Description Received in formalin, labeled "gallbladder," is a 8.2 x 3.8 x 2.9 cm. gallbladder with a 0.2 cm. in length portion of cystic duct attached. There is a 0.5 cm in greatest dimension periductal lymph node present. The outer surface is pulido-pink with a large defect in the fundus and varies from smooth to shaggy. The lumen contains yellow-green, sludgelike bile as well as abundant yellow choleliths ranging from 0.1-1.0 cm in greatest dimension. The mucosa is pulido-green and focally eroded. The wall of the gallbladder averages 0.1 cm. in thickness. Rougher For Cement sections are submitted in one cassette. 05/01/2019 [facility]05/01/2019
== END 2019-05-02 12:56 | disposition home or self-care (01) | DRG 263 ==
LOC: FER 15:00 → J6S 22:10
PROVIDERS: ADMIT Internal Medicine; ATTEND Nurse Practitioner Family
PROC: 0FT44ZZ Resection of Gallbladder, Percutaneous Endoscopic Approach (ICD-10-PCS; principal; 2019-04-30 12:30)
DX: K80.12 Calculus of gallbladder with acute and chronic cholecystitis without obstruction (principal); R74.8 Abnormal levels of other serum enzymes; K21.9 Gastro-esophageal reflux disease without esophagitis; R16.0 Hepatomegaly, not elsewhere classified; R10.11 Right upper quadrant pain
CPT/HCPCS: 36415; 74181-TC; 76705-TC; 80048; 80053; 80076; 81003; 81015; 82150; 82172; 82247; 82248; 82465; 82550; 82553; 82728; 82947; 82977; 83010; 83516; 83540; 83550; 83690; 83735; 83883; 84450; 84460; 84478; 85025; 85610; 85730; 86140; 86704; 86706; 86707; 86708; 86709; 86803; 86850; 86900; 86901; 87086; 87340; 88304-TC; 93005; 94760; 99285-25; J0131; J7030

== ENCOUNTER 2021-01-18 09:35 | Inpatient (IN) | payer SELFPAY ==
[2021-01-18] MEDS ORDERED: SODIUM CHLORIDE 3,538 ML IV ONE (10:39)
[2021-01-18] MEDS ORDERED: PIPERACILLIN/TAZOB 4.5 GM 4.5 GM in DEXTROSE 5%-WATER - 100 ML IVPB ONE (10:40)
[2021-01-18] MEDS ORDERED: PIPERACILLIN/TAZOB 4.5 GM 4.5 GM/100 ML BAG IVPB ONE (10:49)
[2021-01-18 11:21] LABS: INR 1.19 (0.83-1.09); PROTHROMBIN TIME (PATIENT) 13.3 SEC (9.7-13.0)
[2021-01-18 11:30] LABS: EPI CELLS 8 /uL (0-25.1); HYALINE CASTS 44 /uL (0-3.1); PH,URINE 5.5 (5.0-8.0); URINE APPEARANCE CLOUDY; URINE BACTERIA 53 /uL (0-1359); URINE BILIRUBIN 1+ (NEGATIVE); URINE COLOR DK YELLOW; URINE GLUCOSE (UA) NEGATIVE (NEGATIVE); URINE KETONE TRACE (NEGATIVE); URINE LEUK ESTERASE 2+ (NEGATIVE); URINE NITRITE NEGATIVE (NEGATIVE); URINE PROTEIN 1+ (NEGATIVE); URINE RBC 90 /uL (0-23.9); URINE WBC 867 /uL (0-25.8)
[2021-01-18 11:31] LABS: CHLORIDE 105 mmol/L (98-107); SODIUM 138 mmol/L (136-145)
[2021-01-18 11:33] LABS: CALCIUM 9.2 mg/dL (8.5-10.1); GLUCOSE,RANDOM 87 mg/dL (74-106)
[2021-01-18 11:34] LABS: ANION GAP 6 MMOL/L (8-16); BLOOD UREA NITROGEN 12.9 mg/dL (7-18); CO2 27 mmol/L (21-32)
[2021-01-18 11:36] LABS: CREATININE 1.1 mg/dL (0.55-1.3); HEMATOCRIT 42.8 % (35.4-49); HEMOGLOBIN 14.8 GM/dL (11.7-16.9); MCHC 34.5 g/dl (32.0-35.9); MEAN CELL VOLUME 86.9 fl (80-96); MEAN PLT VOLUME 9.7 fl (7.5-11.1); PLATELET COUNT 129 10^3/uL (134-434); RBC 4.92 M/mm3 (4.00-5.60); RDW 14.4 % (11.9-15.9); WHITE BLOOD COUNT 11.4 K/mm3 (4.0-10.0)
[2021-01-18 11:37] LABS: SGOT/AST 25 U/L (15-37); SGPT/ALT 27 U/L (13-61)
[2021-01-18 11:38] LABS: BILIRUBIN,TOTAL 0.9 mg/dL (0.2-1); TOT PROT 7.7 g/dl (6.4-8.2)
[2021-01-18 11:39] LABS: ALK PHOS 77 U/L (45-117)
[2021-01-18 13:40] LABS: ANISOCYTOSIS 1+; MACROCYTOSIS 0; PLATELET ESTIMATE DECREASED
[2021-01-18] MEDS ORDERED: ACETAMINOPHEN 325 MG TABLET (FP) ONE (19:43)
[2021-01-18] MEDS: ACETAMINOPHEN 325 MG TABLET (FP) PO PRN (20:03)
[2021-01-18] MEDS: SODIUM CHLORIDE 1,000 ML IV SCH ×2 (20:04→22:57)
[2021-01-18] MEDS ORDERED: ACETAMINOPHEN/CAFFEINE/BUTALBITAL 1 TAB PO ONE (22:21)
[2021-01-19 02:54] VITALS: BMI 39.4
[2021-01-19] MEDS ORDERED: morphine SULFATE 4 MG/ML VIAL IVPUSH ONE (04:17)
[2021-01-19] MEDS: SODIUM CHLORIDE 1,000 ML IV SCH ×2 (06:45→17:26)
[2021-01-19] MEDS: ACETAMINOPHEN 325 MG TABLET (FP) PO PRN ×2 (06:52→13:57)
[2021-01-19 09:47] LABS: BASO % 0.5 % (0-2.0); EOS % 0.3 % (0-4.5); HEMATOCRIT 41.6 % (35.4-49); HEMOGLOBIN 14.3 GM/dL (11.7-16.9); LYMPH % 4.9 % (8-40); MCH 30.2 pg (25.7-33.7); MCHC 34.4 g/dl (32.0-35.9); MEAN CELL VOLUME 87.8 fl (80-96); MEAN PLT VOLUME 9.7 fl (7.5-11.1); MONO % 5.4 % (3.8-10.2); NEUT % 88.9 % (42.8-82.8); PLATELET COUNT 109 10^3/uL (134-434); RBC 4.74 M/mm3 (4.00-5.60); RDW 14.9 % (11.9-15.9); WHITE BLOOD COUNT 5.6 K/mm3 (4.0-10.0)
[2021-01-19] MEDS ORDERED: DEXTROSE 5%-WATER - 50 ML IVPB ONE (09:55)
[2021-01-19] MEDS: CEFTRIAXONE 2 GM in DEXTROSE 5%-WATER - 50 ML IVPB SCH (09:56)
[2021-01-19] MEDS: ENOXAPARIN NA (PORCINE) 40 MG/0.4 ML DISP.SYRIN SQ SCH ×2 (09:56→10:01)
[2021-01-19 10:13] LABS: BLOOD UREA NITROGEN 9.4 mg/dL (7-18); CALCIUM 8.4 mg/dL (8.5-10.1)
[2021-01-19 10:18] LABS: CREATININE 1.1 mg/dL (0.55-1.3)
[2021-01-19] MEDS ORDERED: IBUPROFEN 600 MG TABLET (FP) PO ONE (14:45)
[2021-01-19] MEDS ORDERED: IBUPROFEN 400 MG TABLET (FP) PO ONE (20:25)
[2021-01-20] MEDS ORDERED: IBUPROFEN 600 MG TABLET (FP) PO PRN (08:35)
[2021-01-20 09:07] LABS: BASO % 1.5 % (0-2.0); EOS % 2.6 % (0-4.5); HEMATOCRIT 41.9 % (35.4-49); LYMPH % 14.8 % (8-40); MCH 29.8 pg (25.7-33.7); MCHC 33.4 g/dl (32.0-35.9); MEAN PLT VOLUME 9.4 fl (7.5-11.1); NEUT % 73.1 % (42.8-82.8); PLATELET COUNT 109 10^3/uL (134-434); RBC 4.71 M/mm3 (4.00-5.60); WHITE BLOOD COUNT 3.3 K/mm3 (4.0-10.0)
[2021-01-20] MEDS ORDERED: DEXTROSE 5%-WATER - 50 ML IVPB ONE (09:15)
[2021-01-20] MEDS: CEFTRIAXONE 2 GM in DEXTROSE 5%-WATER - 50 ML IVPB SCH (09:22)
[2021-01-20] MEDS: SODIUM CHLORIDE 1,000 ML IV SCH (09:23)
[2021-01-20] MEDS: ENOXAPARIN NA (PORCINE) 40 MG/0.4 ML DISP.SYRIN SQ SCH (09:23)
[2021-01-20 09:29] LABS: BLOOD UREA NITROGEN 8.1 mg/dL (7-18); CALCIUM 8.5 mg/dL (8.5-10.1)
[2021-01-20 09:33] LABS: BILIRUBIN,TOTAL 0.3 mg/dL (0.2-1); TOT PROT 6.5 g/dl (6.4-8.2)
[2021-01-20 14:51] VITALS: BP 115/73; PULSE 81; TEMP 97.9
== END 2021-01-20 15:00 | disposition home or self-care (01) | DRG 720 ==
LOC: JER 09:35 → JERBED 14:47 → J6S 20:19
PROVIDERS: ADMIT Internal Medicine; ATTEND Internal Medicine
DX: A41.9 Sepsis, unspecified organism (principal); N39.0 Urinary tract infection, site not specified; E66.9 Obesity, unspecified; N20.0 Calculus of kidney; Z68.39 Body mass index [BMI] 39.0-39.9, adult; D69.6 Thrombocytopenia, unspecified; K21.9 Gastro-esophageal reflux disease without esophagitis
CPT/HCPCS: 36415; 71045-TC-FY; 74176-TC; 80048; 80053; 81003; 83036; 83605; 84484; 85025; 85610; 85730; 87040; 87086; 87186; 87804; 93005; 93010; 99285-25; C9803; U0003; U0005

== ENCOUNTER 2021-02-24 11:35 | Emergency (ER) | payer SELFPAY ==
[2021-02-24 11:58] VITALS: BP 131/89; PULSE 96; TEMP 98.8; BMI 39.1
[2021-02-24] MEDS ORDERED: ACETAMINOPHEN 325 MG TABLET (FP) PO ONE (12:10)
[2021-02-24] MEDS ORDERED: ACETAMINOPHEN 325 MG TABLET (FP) ONE (12:19)
== END 2021-02-24 12:40 | disposition home or self-care (01) ==
LOC: FER 11:35
DX: U07.1 COVID-19 (principal)
CPT/HCPCS: 99283-25; C9803; U0003; U0005

== ENCOUNTER 2023-09-06 08:17 | Emergency (ER) | payer OTHER ==
[2023-09-06 08:32] VITALS: BP 121/78; PULSE 68; RESP 18; TEMP 98.1; BMI 32.9
== END 2023-09-06 09:20 | disposition home or self-care (01) ==
LOC: FER 08:17
DX: R29.810 Facial weakness (principal); G51.0 Bell's palsy; H04.201 Unspecified epiphora, right side
CPT/HCPCS: 99283-25

== ENCOUNTER 2024-11-01 19:35 | Emergency (ER) | payer OTHER ==
[2024-11-01] MEDS: SODIUM CHLORIDE 0.9% 500 ML INFUS.BAG IV ONE (19:40)
[2024-11-01 19:58] VITALS: BP 113/74; PULSE 80; RESP 16; TEMP 98.1; BMI 32.5
[2024-11-01] MEDS ORDERED: KETOROLAC TROMETHAMINE 30 MG/1 ML VIAL ONE (19:59)
[2024-11-01] MEDS: KETOROLAC TROMETHAMINE 30 MG/1 ML VIAL IVPUSH ONE (20:01)
[2024-11-01 20:35] LABS: ABSOLUTE IMMATURE GRANULOCYTES 0.02 x10^3/uL (0.0-0.031); BASOPHILS # 0.04 x10^3/uL (0.01-0.08); EOSINOPHIL % 2.9 % (0.8-7.0); EOSINOPHILS # 0.15 x10^3/uL (0.04-0.54); MCHC 33.2 g/dl (32.3-36.5); MEAN CELL VOLUME 91.8 fl (79.0-92.2); MEAN PLT VOLUME 11.3 fl (9.4-12.4); MONOCYTE # 0.27 x10^3/uL (0.30-0.82); MONOCYTE % 5.2 % (5.3-12.2); RDW 13.0 % (12.2-16.1)
[2024-11-01 20:45] LABS: ALK PHOS 77 U/L (45-117); CO2 26 mmol/L (21-32); CREATININE 1.2 mg/dl (0.6-1.3); GLUCOSE,RANDOM 153 mg/dl (74-106); SGOT/AST 21 U/L (15-37); SGPT/ALT 20 U/L (7-52); TOT PROT 6.6 g/dl (6.4-8.2)
[2024-11-01 20:48] LABS: EPITHELIAL CELLS 0-5 /hpf
[2024-11-01] MEDS: TAMSULOSIN HCL 0.4 MG CAP PO ONE (21:36)
[2024-11-01] MEDS ORDERED: TAMSULOSIN HCL 0.4 MG CAP ONE (21:36)
== END 2024-11-01 21:49 | disposition home or self-care (01) ==
LOC: FER 19:35
PROC: 3E0333Z Introduction of Anti-inflammatory into Peripheral Vein, Percutaneous Approach (ICD-10-PCS; principal; 2024-11-01)
DX: N13.2 Hydronephrosis with renal and ureteral calculous obstruction (principal); M54.9 Dorsalgia, unspecified; R10.30 Lower abdominal pain, unspecified; R31.9 Hematuria, unspecified
CPT/HCPCS: 36415; 74176-TC; 80053; 81003; 81015; 85025; 99285-25